=== PATIENT | female | born 1975 | race Caucasian/White ===

== ENCOUNTER → 2022-11-06 09:24 | Outpatient (CLI) | payer MEDICAID, SELFPAY | PROVIDERS: PCP Family Medicine; Visit Provider Allergy & Immunology | DX: R05.3 Chronic cough (principal) | CPT/HCPCS: 94060; 94726; 94729 ==

== ENCOUNTER → 2022-12-26 12:07 | Outpatient (CLI) | payer MEDICAID, SELFPAY ==
[2022-12-26 13:06] LABS: Erythrocyte Sedimentation Rate 115 mm/hr (0-20)
[2022-12-26 13:40] LABS: Uric Acid 5.1 mg/dl (2.5-6.2)
[2022-12-26 13:45] LABS: C-Reactive Protein 23.4 mg/L (0-4)
[2022-12-27 15:21] LABS: Anti-Cyclic Citrullinated Pept 0 units (0-19)
[2022-12-30 13:08] LABS: Anti-DNA (DS) Ab Qn 1 IU/mL (0-9); Sjogren's Anti-SS-A <0.2 AI (0.0-0.9); Sjogren's Anti-SS-B <0.2 AI (0.0-0.9)
[2022-12-30 21:34] LABS: Antinuclear Antibodies, IFA Negative (.)
[2022-12-31 09:16] LABS: Anti-DNA (DS) Ab Qn 1
[2022-12-31 09:17] LABS: Anti-DNA (DS) Ab Charge YES; Antinuclear Antibodies (ANA) Negative; Sjogren's Anti-SS-A <0.2; Sjogren's Anti-SS-A Ab Charge YES; Sjogren's Anti-SS-B <0.2; Sjogren's Anti-SS-B Ab Charge YES
== END ==
PROVIDERS: PCP Family Medicine; Visit Provider Internal Medicine Pulmonary Disease
DX: J84.9 Interstitial pulmonary disease, unspecified (principal); R06.09 Other forms of dyspnea
CPT/HCPCS: 36415; 84550; 85651; 86038; 86140; 86200; 86225; 86235; 86431

== ENCOUNTER → 2023-03-03 14:55 | Outpatient (CLI) | payer MEDICAID, SELFPAY ==
--- NOTE | 2023-03-03 14:55 | CT_ITS ---
FINAL REPORT CLINICAL HISTORY: High res chest- interstitial pulm disease supine inspiration supine expiration prone inspiration FINDINGS: CT CHEST HIGH RESOLUTION 1.[address] axial slices were performed through the chest at 10 mm intervals utilizing high-resolution protocol. Supine inspiration and expiration and prone inspiration high-resolution CT images were obtained.Coronal reformatted images were submitted. This study was performed with techniques to keep radiation doses as low as reasonably achievable (ALARA). Individualized dose reduction techniques using automated exposure control or adjustment of mA and/or kV according to the patient's size were employed. There is no axillary adenopathy. There is no hilar or mediastinal mass or adenopathy. Heart size is normal. There is no pericardial or pleural effusion. No suspicious infiltrate or nodule is identified on lung window images. High resolution images were obtained in inspiration, expiration, and the prone position. There is no interlobular septal thickening. No pulmonary fibrosis is seen. There is no bronchiectasis. There is no significant air trapping on the expiration images. Limited images of the upper abdomen are unremarkable. IMPRESSION: No evidence of interstitial fibrosis. No evidence of acute intrathoracic abnormality. Reviewed, Interpreted and Dictated by Yola Langley MD Transcribed by Cori Mcarthur Authenticated and . [facility]
== END ==
PROVIDERS: PCP Family Medicine; Visit Provider Internal Medicine Pulmonary Disease
DX: J84.9 Interstitial pulmonary disease, unspecified (principal)
CPT/HCPCS: 71250

== ENCOUNTER → 2023-04-13 09:47 | Outpatient (CLI) | payer MEDICAID, SELFPAY ==
[2023-04-16 18:10] LABS: D001-IgE D pteronyssinus <0.10 kU/L (Class 0); D002-IgE D farinae <0.10 kU/L (Class 0); E001-IgE Cat Dander <0.10 kU/L (Class 0); E005-IgE Dog Dander <0.10 kU/L (Class 0); E072-IgE Mouse Urine <0.10 kU/L (Class 0); G002-IgE Bermuda Grass <0.10 kU/L (Class 0); G006-IgE Timothy Grass <0.10 kU/L (Class 0); I006-IgE Cockroach, German <0.10 kU/L (Class 0); Immunoglobulin E, Total 49 IU/mL (6-495); M001-IgE Penicillium chrysogen <0.10 kU/L (Class 0); M002-IgE Cladosporium herbarum <0.10 kU/L (Class 0); M003-IgE Aspergillus fumigatus <0.10 kU/L (Class 0); M006-IgE Alternaria alternata <0.10 kU/L (Class 0); T001-IgE Maple/Box Elder <0.10 kU/L (Class 0); T003-IgE Common Silver Birch <0.10 kU/L (Class 0); T006-IgE Cedar, Mountain <0.10 kU/L (Class 0); T007-IgE Oak, White <0.10 kU/L (Class 0); T008-IgE Elm, American 0.11 kU/L (Class 0/I); T010-IgE Walnut <0.10 kU/L (Class 0); T011-IgE Maple Leaf Sycamore <0.10 kU/L (Class 0); T014-IgE Cottonwood <0.10 kU/L (Class 0); T015-IgE Ash, White <0.10 kU/L (Class 0); T022-IgE Pecan, Hickory <0.10 kU/L (Class 0); T070-IgE White Mulberry <0.10 kU/L (Class 0); W001-IgE Ragweed, Short <0.10 kU/L (Class 0); W011-IgE Thistle, Russian <0.10 kU/L (Class 0); W014-IgE Pigweed, Common <0.10 kU/L (Class 0); W018-IgE Sheep Sorrel <0.10 kU/L (Class 0)
[2023-04-21 09:16] LABS: Immunoglobulin E, Total 49
== END ==
LOC: LAB 09:48
PROVIDERS: PCP Family Medicine; Visit Provider Allergy & Immunology
DX: R06.2 Wheezing (principal); J30.89 Other allergic rhinitis; R05.3 Chronic cough; R94.2 Abnormal results of pulmonary function studies
CPT/HCPCS: 36415; 82785; 86003

== ENCOUNTER 2024-06-07 14:40 | Outpatient (CLI) | payer OTHER, SELFPAY | END 2024-06-07 23:59 | disposition home or self-care (01) | LOC: LAB.DROPOF 06-08 09:12 | PROVIDERS: PCP Nurse Practitioner; Visit Provider Nurse Practitioner | DX: S91.309A Unspecified open wound, unspecified foot, initial encounter (principal); T81.49XA Infection following a procedure, other surgical site, initial encounter; E08.621 Diabetes mellitus due to underlying condition with foot ulcer; L97.521 Non-pressure chronic ulcer of other part of left foot limited to breakdown of skin | CPT/HCPCS: 87070; 87077; 87186; 87205 ==

== ENCOUNTER 2024-10-20 22:22 | Emergency (ER) | payer OTHER, SELFPAY ==
[2024-10-20 22:31] VITALS: BP 120/62; PULSE 109; RESP 22; TEMP 37.6; O2SAT 98; BMI 39.9
[2024-10-20 22:32] VITALS: BP 120/62; PULSE 103; O2SAT 96
--- OUTSIDE RECORDS SUMMARY | 2024-10-20 22:41 | XMS_ITS | Data Portability ---
Author Organization [facility] [place] [facility] ADMIN Address [address] [place] [id number] Care Team Providers Care Pen Tender Name Role Phone BEBETO LANG Primary Care Provider [phone] Assessment No assessment recorded. Plan of Treatment Reminders Order Date Submit Date Provider Last Modified By Organization Details Last Modified Time Details Appointments 3 MONTH FU 15 2024 08:30A M Bebeto Lang MD Not available Not available Not available Lab thyroid panel, serum 2024 025 UMAIR [facility], [address], [place], [address], 09/21/2024 04:09:17 lipid panel, serum 2024 025 UMAIR [facility], [address], [address], [place], [address], 09/21/2024 04:09:16 HbA1c (hemoglob in A1c), blood 2024 025 UMAIR [facility], [address], [address], [place], [address], 09/21/2024 04:09:18 CMP, serum or plasma 2024 025 UMAIR [facility], [address], [address], [place], [address], 09/21/2024 04:09:15 HbA1c (hemoglob in A1c), blood 2024 025 UMAIR [facility], [address], [address], [place], [address], 06/22/2024 09:14:48 microalbu min/creat inine, mass ratio, urine 2024 025 UMAIR [facility], [address], [address], [place], [address], 06/22/2024 09:14:47 CMP, serum or plasma 2024 025 UMAIR [facility], [address], [address], [place], [address], 06/22/2024 09:14:45 lipid panel, serum 2024 025 GRAPEVINE [facility], [address], [address], [place], [address], 06/22/2024 09:14:46 HbA1c (hemoglob in A1c), blood 2023 024 [facility], [address], [place], [address], 03/18/2024 10:05:27 HbA1c (hemoglob in A1c), blood 2023 024 UMAIR [facility], [address], [address], [place], [address], 12/19/2023 03:36:56 CMP, serum or plasma 2023 024 UMAIR [facility], [address], [address], [place], [address], 12/19/2023 03:36:55 lipid panel, serum 2023 024 UMAIR [facility], [address], [address], [place], [address], 12/19/2023 03:36:56 CMP, serum or plasma 2023 024 UMAIR [facility], [address], [address], [place], [address], 09/05/2023 09:38:17 lipid panel, serum 2023 024 UMAIR [facility], [address], [place], [address], 09/05/2023 09:38:18 HbA1c (hemoglob in A1c), blood 2023 024 UMAIR [facility], [address], [place], [address], 09/05/2023 09:38:20 thyroid panel, serum 2023 024 UMAIR [facility], [address], [place], [address], 09/05/2023 09:38:19 CBC w/ auto diff 2023 024 UMAIR [facility], [address], [place], [address], 09/05/2023 09:38:16 Referral None recorded. Procedures None recorded. Surgeries None recorded. Imaging None recorded. Medication Orders azelastin e 137 mcg-fluti casone 50 mcg/spray nasal spray 2024 025 UMAIR [employer] [employer] [address] [place], [address], 09/20/2024 09:24:02 metformin 850 mg tablet 2024 025 [facility] [address] [facility] [address], [place], [address], 09/20/2024 09:24:05 ibuprofen 800 mg tablet 2024 [facility] [address] [facility], [place], [address], 09/20/2024 09:24:08 diclofena c 1 % topical gel 2024 [facility] [address] [facility] [address], [place], [address], 09/20/2024 09:24:05 carvedilo l 12.5 mg tablet 2024 [facility], [facility]., [address] [facility] [address], [place], [address], 09/20/2024 09:24:01 azelastin e 137 mcg-fluti casone 50 mcg/spray nasal spray 2024 [facility] [address] [facility] [address], [place], [address], 06/21/2024 09:11:23 levocetir izine 5 mg tablet 2024 025 [facility] [address] [facility] [address], [place], [address], 06/21/2024 09:11:23 simvastat in 20 mg tablet 2024 025 [facility] [address] [facility] [address], [place], [address], 06/21/2024 09:11:22 carvedilo l 6.25 mg tablet 2024 025 [facility] [address] [facility] [address], [place], [address], 06/21/2024 09:35:56 Voltaren Arthritis Pain 1 % topical gel 2023 025 [facility] [id number], [address] [place] [address], [address], 06/21/2024 09:04:11 Januvia 100 mg tablet 2023 024 [facility], [facility]., [address] [place] [address] C, [place], [address], 03/18/2024 09:23:41 Coreg 3.125 mg tablet 2023 024 [facility], [facility]., [address] [place] [address], [place], [address], 09/20/2024 09:14:51 glimepiri de 4 mg tablet 2023 024 [facility], [facility]., [address] [place] [address], [place], [address], 12/18/2023 08:42:53 Januvia 100 mg tablet 2023 024 [facility] [address] [place] [address], [place], [address], 12/18/2023 08:42:49 Lantus Solostar U-100 Insulin 100 unit/mL (3 mL) subcutane ous pen 2023 024 [facility] [address] [place] [address] C, [place], [address], 12/18/2023 08:42:52 metformin 850 mg tablet 2023 024 [facility] [address] [place] [address] C, [place], [address], 12/18/2023 08:42:50 carvedilo l 12.5 mg tablet 2023 024 [email or web address] [facility] [employer] [employer] [address] [facility] [address], [place], [address], 06/21/2024 09:04:00 losartan 100 mg-hydroc hlorothia zide 25 mg tablet 2023 024 [facility] [address] [facility] [place], [address], 12/18/2023 08:42:52 ibuprofen 800 mg tablet 2023 024 [facility], [employer] [address] [facility] [address], [place], [address], 06/21/2024 09:04:17 losartan 100 mg-hydroc hlorothia zide 25 mg tablet 2023 024 [facility] [id number], [address] [place] [address], [address], 09/04/2023 09:50:26 Patient TargetsNo targets recorded. Patient InstructionsNo instructions recorded. Reason for Referral None Reported. Results Created Date Observation Date Name Description Value Unit Range Abnormal Flag Note LastModifiedBy Organization Detail LastModifiedTime 09/04/1909/05/2023 CBC WITH DIFFE RENTI AL/PL ATELE T WBC 11.4 x10e3 /uL 3.4-10 .8 above high normal Not Available [facility] ([facility]) [address] [place], [address], 09/05/2023 09:38:16 09/04/19 24 09/05/2023 CBC WITH DIFFE RENTI AL/PL ATELE T RBC 3.92 x10e6 /uL 3.77-5 .28 Not Available [facility] ([facility]) [address] [facility], [place], [address], 09/05/2023 09:38:16 09/04/19 24 09/05/2023 CBC WITH DIFFE RENTI AL/PL ATELE T hemoglobin 12.0 g/dL 11.1-1 5.9 Not Available [facility] ([facility]) [address] [facility], [place], [address], 09/05/2023 09:38:16 09/04/19 24 09/05/2023 CBC WITH DIFFE RENTI AL/PL ATELE T hematocrit 36.1 % 34.0-4 6.6 Not Available [facility] ([facility]) [address] [facility], [place], [address], 09/05/2023 09:38:16 09/04/19 24 09/05/2023 CBC WITH DIFFE RENTI AL/PL ATELE T MCV 92 fL 79-97 Not Available [facility] ([facility]) [address] [facility], [place], [address], 09/05/2023 09:38:16 09/04/19 24 09/05/2023 CBC WITH DIFFE RENTI AL/PL ATELE T MCH 30.6 pg 26.6-3 3.0 Not Available [facility] ([facility]) [address] [place], [address], 09/05/2023 09:38:16 09/04/19 24 09/05/2023 CBC WITH DIFFE RENTI AL/PL ATELE T MCHC 33.2 g/dL 31.5-3 5.7 Not Available [facility] ([facility]) [address] [place], [address], 09/05/2023 09:38:16 09/04/19 24 09/05/2023 CBC WITH DIFFE RENTI AL/PL ATELE T RDW 12.8 % 11.7-1 5.4 Not Available [facility] ([facility]) [address] [place], [address], 09/05/2023 09:38:16 09/04/19 24 09/05/2023 CBC WITH DIFFE RENTI AL/PL ATELE T platelets 261 x10e3 /uL 150-45 0 Not Available [facility] ([facility]) [address] [facility], [place], [address], 09/05/2023 09:38:16 09/04/19 24 09/05/2023 CBC WITH DIFFE RENTI AL/PL ATELE T neutrophils 67 % not estab. Not Available [facility] ([facility]) [address] [facility], [place], [address], 09/05/2023 09:38:16 09/04/19 24 09/05/2023 CBC WITH DIFFE RENTI AL/PL ATELE T lymphs 26 % not estab. Not Available [facility] ([facility]) [address] [facility], [place], [address], 09/05/2023 09:38:16 09/04/19 24 09/05/2023 CBC WITH DIFFE RENTI AL/PL ATELE T monocytes 5 % not estab. Not Available [facility] ([facility]) [address] [facility], [place], [address], 09/05/2023 09:38:16 09/04/19 24 09/05/2023 CBC WITH DIFFE RENTI AL/PL ATELE T eos 2 % not estab. Not Available [facility] ([facility]) [address] [facility], [place], [address], 09/05/2023 09:38:16 09/04/19 24 09/05/2023 CBC WITH DIFFE RENTI AL/PL ATELE T basos 0 % not estab. Not Available [facility] ([facility]) [address] [facility], [place], [address], 09/05/2023 09:38:16 09/04/19 24 09/05/2023 CBC WITH DIFFE RENTI AL/PL ATELE T immature cells BLANKET CUTTER HAND Not Available [facility] ([facility]) [address] [facility], [place], [address], 09/05/2023 09:38:16 09/04/19 24 09/05/2023 CBC WITH DIFFE RENTI AL/PL ATELE T neutrophils (absolute) 7.6 x10e3 /uL 1.4-7. 0 above high normal Not Available [facility] ([facility]) [address] [place], [address], 09/05/2023 09:38:16 09/04/19 24 09/05/2023 CBC WITH DIFFE RENTI AL/PL ATELE T lymphs (absolute) 2.9 x10e3 /uL 0.7-3. 1 Not Available [facility] ([facility]) [address] [place], [address], 09/05/2023 09:38:16 09/04/19 24 09/05/2023 CBC WITH DIFFE RENTI AL/PL ATELE T monocytes(ab solute) 0.6 x10e3 /uL 0.1-0. 9 Not Available [facility] ([facility]) [address] [place], [address], 09/05/2023 09:38:16 09/04/19 24 09/05/2023 CBC WITH DIFFE RENTI AL/PL ATELE T eos (absolute) 0.3 x10e3 /uL 0.0-0. 4 Not Available [facility] ([facility]) [address] [place], [address], 09/05/2023 09:38:16 09/04/19 24 09/05/2023 CBC WITH DIFFE RENTI AL/PL ATELE T baso (absolute) 0.1 x10e3 /uL 0.0-0. 2 Not Available [facility] ([facility]) [address] [place], [address], 09/05/2023 09:38:16 09/04/19 24 09/05/2023 CBC WITH DIFFE RENTI AL/PL ATELE T immature granulocytes 0 % not estab. Not Available [facility] ([facility]) [address] [facility], [place], [address], 09/05/2023 09:38:16 09/04/19 24 09/05/2023 CBC WITH DIFFE RENTI AL/PL ATELE T immature grans (abs) 0.0 x10e3 /uL 0.0-0. 1 Not Available [facility] ([facility]) [address] [facility], [place], [address], 09/05/2023 09:38:16 09/04/19 24 09/05/2023 CBC WITH DIFFE RENTI AL/PL ATELE T NRBC BLANKET CUTTER HAND Not Available [facility] ([facility]) [address] [facility], [place], [address], 09/05/2023 09:38:16 09/04/19 24 09/05/2023 CBC WITH DIFFE RENTI AL/PL ATELE T hematology comments: BLANKET CUTTER HAND Not Available [facility] ([facility]) [address] [facility], [place], [address], 09/05/2023 09:38:16 09/04/19 24 09/05/2023 COMP. METAB OLIC PANEL (14) glucose 136 mg/dL 70-99 above high normal Not Available [facility] ([facility]) [address] [facility] [place], [address], 09/05/2023 09:38:17 09/04/19 24 09/05/2023 COMP. METAB OLIC PANEL (14) BUN 28 mg/dL 6-24 above high normal Not Available [facility] ([facility]) [address] [facility] [place], [address], 09/05/2023 09:38:17 09/04/19 24 09/05/2023 COMP. METAB OLIC PANEL (14) creatinine 1.19 mg/dL 0.57-1 .00 above high normal Not Available [facility] ([facility]) [address] [facility], [place], [address], 09/05/2023 09:38:17 09/04/19 24 09/05/2023 COMP. METAB OLIC PANEL (14) eGFR 57 mL/mi n/1.7 3 >59 below low normal Not Available [facility] ([facility]) [address], [place], [address], 09/05/2023 09:38:17 09/04/19 24 09/05/2023 COMP. METAB OLIC PANEL (14) BUN/creatini ne ratio 24 9-23 above high normal Not Available [facility] ([facility]) [address] [place], [address], 09/05/2023 09:38:17 09/04/19 24 09/05/2023 COMP. METAB OLIC PANEL (14) sodium 139 mmol/ L 134-14 4 Not Available [facility] ([facility]) [address] [place], [address], 09/05/2023 09:38:17 09/04/19 24 09/05/2023 COMP. METAB OLIC PANEL (14) potassium 5.3 mmol/ L 3.5-5. 2 above high normal Not Available [facility] ([facility]) [address] [place], [address], 09/05/2023 09:38:17 09/04/19 24 09/05/2023 COMP. METAB OLIC PANEL (14) chloride 100 mmol/ L 96-106 Not Available [facility] ([facility]) [address] [place], [address], 09/05/2023 09:38:17 09/04/19 24 09/05/2023 COMP. METAB OLIC PANEL (14) carbon dioxide, total 24 mmol/ L 20-29 Not Available [facility] ([facility]) [address] [place], [address], 09/05/2023 09:38:17 09/04/19 24 09/05/2023 COMP. METAB OLIC PANEL (14) calcium 9.7 mg/dL 8.7-10 .2 Not Available [facility] ([facility]) [address] [place], [address], 09/05/2023 09:38:17 09/04/19 24 09/05/2023 COMP. METAB OLIC PANEL (14) protein, total 7.1 g/dL 6.0-8. 5 Not Available [facility] ([facility]) [address], [place], [address], 09/05/2023 09:38:17 09/04/19 24 09/05/2023 COMP. METAB OLIC PANEL (14) albumin 4.2 g/dL 3.9-4. 9 Not Available [facility] ([facility]) [address] [place], [address], 09/05/2023 09:38:17 09/04/19 24 09/05/2023 COMP. METAB OLIC PANEL (14) globulin, total 2.9 g/dL 1.5-4. 5 Not Available [facility] ([facility]) [address] [place], [address], 09/05/2023 09:38:17 09/04/19 24 09/05/2023 COMP. METAB OLIC PANEL (14) A/G ratio 1.4 1.2-2. 2 Not Available [facility] ([facility]) [address] [place], [address], 09/05/2023 09:38:17 09/04/19 24 09/05/2023 COMP. METAB OLIC PANEL (14) bilirubin, total <0.2 mg/dL 0.0-1. 2 Not Available [facility] ([facility]) [address], [place], [address], 09/05/2023 09:38:17 09/04/19 24 09/05/2023 COMP. METAB OLIC PANEL (14) alkaline phosphatase 101 IU/L 44-121 Not Available [facility] ([facility]) [address] [place], [address], 09/05/2023 09:38:17 09/04/19 24 09/05/2023 COMP. METAB OLIC PANEL (14) AST (SGOT) 13 IU/L 0-40 Not Available [facility] ([facility]) [address] [place], [address], 09/05/2023 09:38:17 09/04/19 24 09/05/2023 COMP. METAB OLIC PANEL (14) ALT (SGPT) 14 IU/L 0-32 Not Available [facility] ([facility]) [address] [place], [address], 09/05/2023 09:38:17 09/04/19 24 09/05/2023 LIPID PANEL cholesterol, total 211 mg/dL 100-19 9 above high normal Not Available [facility] ([facility]) [address] [place], [address], 09/05/2023 09:38:18 09/04/19 24 09/05/2023 LIPID PANEL triglyceride s 210 mg/dL 0-149 above high normal Not Available [facility] ([facility]) [address] [place], [address], 09/05/2023 09:38:18 09/04/19 24 09/05/2023 LIPID PANEL HDL cholesterol 50 mg/dL >39 Not Available [facility] ([facility]) [address] [place], [address], 09/05/2023 09:38:18 09/04/19 24 09/05/2023 LIPID PANEL VLDL cholesterol bola 37 mg/dL 5-40 Not Available [facility] ([facility]) [address] [place], [address], 09/05/2023 09:38:18 09/04/19 24 09/05/2023 LIPID PANEL LDL chol calc ([facility]) 124 mg/dL 0-99 above high normal Not Available [facility] ([facility]) [address] [place], [address], 09/05/2023 09:38:18 09/04/19 24 09/05/2023 LIPID PANEL 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 Not Available [facility] ([facility]) [address] [place], [address], 09/05/2023 09:38:18 09/04/19 24 09/05/2023 THYRO ID PANEL WITH TSH TSH 5.070 uIU/m L 0.450- 4.500 above high normal Not Available [facility] ([facility]) [address] [place], [address], 09/05/2023 09:38:19 09/04/19 24 09/05/2023 THYRO ID PANEL WITH TSH thyroxine (T4) 10.1 ug/dL 4.5-12 .0 Not Available [facility] ([facility]) [address] [place], [address], 09/05/2023 09:38:19 09/04/19 24 09/05/2023 THYRO ID PANEL WITH TSH T3 uptake 24 % 24-39 Not Available [facility] ([facility]) [address] [place], [address], 09/05/2023 09:38:19 09/04/19 24 09/05/2023 THYRO ID PANEL WITH TSH free thyroxine index 2.4 1.2-4. 9 Not Available [facility] ([facility]) [address] [place], [address], 09/05/2023 09:38:19 09/04/19 24 09/05/2023 HEMOG LOBIN A1C hemoglobin A1C 8.4 % 4.8-5. 6 above high normal Predi abete s: 5.7 - 6.4 Diabe orville: >6.4 Glyce sonal contr ol for adult s with diabe orville: <7.0 Not Available [facility] ([facility]) [address] [place], [address], 09/05/2023 09:38:20 12/18/19 24 12/19/2023 COMP. METAB OLIC PANEL (14) glucose 174 mg/dL 70-99 above high normal Not Available [facility] ([facility]) [address] [place], [address], 12/19/2023 03:36:55 12/18/19 24 12/19/2023 COMP. METAB OLIC PANEL (14) BUN 34 mg/dL 6-24 above high normal Not Available [facility] ([facility]) [address] [place], [address], 12/19/2023 03:36:55 12/18/19 24 12/19/2023 COMP. METAB OLIC PANEL (14) creatinine 1.11 mg/dL 0.57-1 .00 above high normal Not Available [facility] ([facility]) [address] [place], [address], 12/19/2023 03:36:55 12/18/19 24 12/19/2023 COMP. METAB OLIC PANEL (14) eGFR 62 mL/mi n/1.7 3 >59 normal Not Available [facility] ([facility]) [address] [place], [address], 12/19/2023 03:36:55 12/18/19 24 12/19/2023 COMP. METAB OLIC PANEL (14) BUN/creatini ne ratio 31 9-23 above high normal Not Available [facility] ([facility]) [address] [place], [address], 12/19/2023 03:36:55 12/18/19 24 12/19/2023 COMP. METAB OLIC PANEL (14) sodium 140 mmol/ L 134-14 4 normal Not Available [facility] ([facility]) [address] [facility] [place], [address], 12/19/2023 03:36:55 12/18/19 24 12/19/2023 COMP. METAB OLIC PANEL (14) potassium 4.5 mmol/ L 3.5-5. 2 normal Not Available [facility] ([facility]) [address] [facility] [place], [address], 12/19/2023 03:36:55 12/18/19 24 12/19/2023 COMP. METAB OLIC PANEL (14) chloride 102 mmol/ L 96-106 normal Not Available [facility] ([facility]) [address] [facility] [place], [address], 12/19/2023 03:36:55 12/18/1912/19/2023 COMP. METAB OLIC PANEL (14) carbon dioxide, total 22 mmol/ L 20-29 normal Not Available [facility] ([facility]) [address] [facility] [place], [address], 12/19/2023 03:36:55 12/18/19 24 12/19/2023 COMP. METAB OLIC PANEL (14) calcium 8.9 mg/dL 8.7-10 .2 normal Not Available [facility] ([facility]) [address] [facility] [place], [address], 12/19/2023 03:36:55 12/18/1912/19/2023 COMP. METAB OLIC PANEL (14) protein, total 6.9 g/dL 6.0-8. 5 normal Not Available [facility] ([facility]) [address] [facility] [place], [address], 12/19/2023 03:36:55 12/18/19 24 12/19/2023 COMP. METAB OLIC PANEL (14) albumin 4.1 g/dL 3.9-4. 9 normal Not Available [facility] ([facility]) [address] [place], [address], 12/19/2023 03:36:55 12/18/19 24 12/19/2023 COMP. METAB OLIC PANEL (14) globulin, total 2.8 g/dL 1.5-4. 5 Not Available [facility] ([facility]) [address] [place], [address], 12/19/2023 03:36:55 12/18/19 24 12/19/2023 COMP. METAB OLIC PANEL (14) bilirubin, total <0.2 mg/dL 0.0-1. 2 Not Available [facility] ([facility]) [address] [place], [address], 12/19/2023 03:36:55 12/18/19 24 12/19/2023 COMP. METAB OLIC PANEL (14) alkaline phosphatase 83 IU/L 44-121 normal Not Available [facility] ([facility]) [address] [place], [address], 12/19/2023 03:36:55 12/18/1912/19/2023 COMP. METAB OLIC PANEL (14) AST (SGOT) 11 IU/L 0-40 normal Not Available [facility] ([facility]) [address] [place], [address], 12/19/2023 03:36:55 12/18/19 24 12/19/2023 COMP. METAB OLIC PANEL (14) ALT (SGPT) 15 IU/L 0-32 normal Not Available [facility] ([facility]) [address] [place], [address], 12/19/2023 03:36:55 12/18/19 24 12/19/2023 LIPID PANEL cholesterol, total 196 mg/dL 100-19 9 normal Not Available [facility] ([facility]) [address] [facility] [place], [address], 12/19/2023 03:36:56 12/18/1912/19/2023 LIPID PANEL triglyceride s 350 mg/dL 0-149 above high normal Not Available [facility] ([facility]) [address] [place], [address], 12/19/2023 03:36:56 12/18/1912/19/2023 LIPID PANEL HDL cholesterol 38 mg/dL >39 below low normal Not Available [facility] ([facility]) [address] [place], [address], 12/19/2023 03:36:56 12/18/1912/19/2023 LIPID PANEL VLDL cholesterol bola 59 mg/dL 5-40 above high normal Not Available [facility] ([facility]) [address] [place], [address], 12/19/2023 03:36:56 12/18/1912/19/2023 LIPID PANEL LDL chol calc ([facility]) 99 mg/dL 0-99 Not Available [facility] ([facility]) [address] [place], [address], 12/19/2023 03:36:56 12/18/1912/19/2023 LIPID PANEL LDL calc 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 Not Available [facility] ([facility]) [address] [place], [address], 12/19/2023 03:36:56 12/18/1912/19/2023 HEMOG LOBIN A1C hemoglobin A1C 8.0 % 4.8-5. 6 above high normal Predi abete s: 5.7 - 6.4 Diabe orville: >6.4 Glyce sonal contr ol for adult s with diabe orville: <7.0 Not Available [facility] ([facility]) [address] [place], [address], 12/19/2023 03:36:56 03/18/2003/18/2024 HbA1c (hemo globi n A1c), blood HbA1c 6.9 Not Available [facility] [address], [place], [address], 03/18/2024 09:22:01 06/21/19 25 06/22/2024 COMP. METAB OLIC PANEL (14) glucose 139 mg/dL 70-99 above high normal Not Available [facility] ([facility]) [address] [place], [address], 06/22/2024 09:14:45 06/21/19 25 06/22/2024 COMP. METAB OLIC PANEL (14) BUN 33 mg/dL 6-24 above high normal Not Available [facility] ([facility]) [address] [place], [address], 06/22/2024 09:14:45 06/21/19 25 06/22/2024 COMP. METAB OLIC PANEL (14) creatinine 1.12 mg/dL 0.57-1 .00 above high normal Not Available [facility] ([facility]) [address] [place], [address], 06/22/2024 09:14:45 06/21/19 25 06/22/2024 COMP. METAB OLIC PANEL (14) eGFR 61 mL/mi n/1.7 3 >59 normal Not Available [facility] ([facility]) [address] [place], [address], 06/22/2024 09:14:45 06/21/19 25 06/22/2024 COMP. METAB OLIC PANEL (14) BUN/creatini ne ratio 29 9-23 above high normal Not Available [facility] ([facility]) [address] [place], [address], 06/22/2024 09:14:45 06/21/19 25 06/22/2024 COMP. METAB OLIC PANEL (14) sodium 141 mmol/ L 134-14 4 normal Not Available [facility] ([facility]) [address] [place], [address], 06/22/2024 09:14:45 06/21/19 25 06/22/2024 COMP. METAB OLIC PANEL (14) potassium 5.0 mmol/ L 3.5-5. 2 normal Not Available [facility] ([facility]) [address] [place], [address], 06/22/2024 09:14:45 06/21/19 25 06/22/2024 COMP. METAB OLIC PANEL (14) chloride 102 mmol/ L 96-106 normal Not Available [facility] ([facility]) [address] [place], [address], 06/22/2024 09:14:45 06/21/19 25 06/22/2024 COMP. METAB OLIC PANEL (14) carbon dioxide, total 23 mmol/ L 20-29 normal Not Available [facility] ([facility]) [address] [facility] [place], [address], 06/22/2024 09:14:45 06/21/19 25 06/22/2024 COMP. METAB OLIC PANEL (14) calcium 10.1 mg/dL 8.7-10 .2 normal Not Available [facility] ([facility]) [address] [facility] [place], [address], 06/22/2024 09:14:45 06/21/19 25 06/22/2024 COMP. METAB OLIC PANEL (14) protein, total 7.3 g/dL 6.0-8. 5 normal Not Available [facility] ([facility]) [address] [facility] [place], [address], 06/22/2024 09:14:45 06/21/19 25 06/22/2024 COMP. METAB OLIC PANEL (14) albumin 4.2 g/dL 3.9-4. 9 normal Not Available [facility] ([facility]) [address] [facility] [place], [address], 06/22/2024 09:14:45 06/21/19 25 06/22/2024 COMP. METAB OLIC PANEL (14) globulin, total 3.1 g/dL 1.5-4. 5 Not Available [facility] ([facility]) [address] [facility] [place], [address], 06/22/2024 09:14:45 06/21/19 25 06/22/2024 COMP. METAB OLIC PANEL (14) bilirubin, total <0.2 mg/dL 0.0-1. 2 Not Available [facility] ([facility]) [address] [facility] [place], [address], 06/22/2024 09:14:45 06/21/19 25 06/22/2024 COMP. METAB OLIC PANEL (14) alkaline phosphatase 84 IU/L 44-121 normal Not Available [facility] ([facility]) [address] [facility] [place], [address], 06/22/2024 09:14:45 06/21/19 25 06/22/2024 COMP. METAB OLIC PANEL (14) AST (SGOT) 10 IU/L 0-40 normal Not Available [facility] ([facility]) [address] [place], [address], 06/22/2024 09:14:45 06/21/19 25 06/22/2024 COMP. METAB OLIC PANEL (14) ALT (SGPT) 13 IU/L 0-32 normal Not Available [facility] ([facility]) [address] [facility] [place], [address], 06/22/2024 09:14:45 06/21/19 25 06/22/2024 LIPID PANEL cholesterol, total 171 mg/dL 100-19 9 normal Not Available [facility] ([facility]) [address] [place], [address], 06/22/2024 09:14:46 06/21/19 25 06/22/2024 LIPID PANEL triglyceride s 236 mg/dL 0-149 above high normal Not Available [facility] ([facility]) [address] [place], [address], 06/22/2024 09:14:46 06/21/19 25 06/22/2024 LIPID PANEL HDL cholesterol 41 mg/dL >39 normal Not Available [facility] ([facility]) [address] [place], [address], 06/22/2024 09:14:46 06/21/19 25 06/22/2024 LIPID PANEL VLDL cholesterol bola 40 mg/dL 5-40 Not Available [facility] ([facility]) [address] [place], [address], 06/22/2024 09:14:46 06/21/1906/22/2024 LIPID PANEL LDL chol calc ([facility]) 90 mg/dL 0-99 Not Available [facility] ([facility]) [address] [place], [address], 06/22/2024 09:14:46 06/21/1906/22/2024 LIPID PANEL 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 normal Not Available [facility] ([facility]) [address] [place], [address], 06/22/2024 09:14:47 06/21/19 25 06/22/2024 ALBUM IN/CR EAT RATIO , RANDO M UR albumin, urine 24.9 ug/mL not estab. Not Available [facility] ([facility]) [address] [place], [address], 06/22/2024 09:14:47 06/21/1906/22/2024 ALBUM IN/CR EAT RATIO , TYLER Ford UR alb/creat ratio 60 mg/g_ creat 0-29 above high normal Florina l: 0 - 29 Moder ately incre ased: 30 - 300 Sever tammi incre ased: >300 Not Available [facility] ([facility]) [address] [place], [address], 06/22/2024 09:14:47 06/21/1906/22/2024 HEMOG LOBIN A1C hemoglobin A1C 8.0 % 4.8-5. 6 above high normal Predi abete s: 5.7 - 6.4 Diabe orville: >6.4 Glyce sonal contr ol for adult s with diabe orville: <7.0 Not Available [facility] ([facility]) [address] [place], [address], 06/22/2024 09:14:48 09/21/1909/21/2024 COMP. METAB OLIC PANEL (14) glucose 192 mg/dL 70-99 above high normal Not Available [facility] ([facility]) [address] [place], [address], 09/21/2024 04:09:15 09/21/19 25 09/21/2024 COMP. METAB OLIC PANEL (14) BUN 35 mg/dL 6-24 above high normal Not Available [facility] ([facility]) [address] [place], [address], 09/21/2024 04:09:15 09/21/19 25 09/21/2024 COMP. METAB OLIC PANEL (14) creatinine 1.22 mg/dL 0.57-1 .00 above high normal Not Available [facility] ([facility]) [address] [place], [address], 09/21/2024 04:09:15 09/21/19 25 09/21/2024 COMP. METAB OLIC PANEL (14) eGFR 55 mL/mi n/1.7 3 >59 below low normal Not Available [facility] ([facility]) [address] [place], [address], 09/21/2024 04:09:15 09/21/19 25 09/21/2024 COMP. METAB OLIC PANEL (14) BUN/creatini ne ratio 29 9-23 above high normal Not Available [facility] ([facility]) [address] [place], [address], 09/21/2024 04:09:15 09/21/19 25 09/21/2024 COMP. METAB OLIC PANEL (14) sodium 139 mmol/ L 134-14 4 normal Not Available [facility] ([facility]) [address] [place], [address], 09/21/2024 04:09:15 09/21/19 25 09/21/2024 COMP. METAB OLIC PANEL (14) potassium 4.5 mmol/ L 3.5-5. 2 normal Not Available [facility] ([facility]) [address] [place], [address], 09/21/2024 04:09:15 09/21/19 25 09/21/2024 COMP. METAB OLIC PANEL (14) chloride 103 mmol/ L 96-106 normal Not Available [facility] ([facility]) [address] [place], [address], 09/21/2024 04:09:15 09/21/19 25 09/21/2024 COMP. METAB OLIC PANEL (14) carbon dioxide, total 19 mmol/ L 20-29 below low normal Not Available [facility] ([facility]) [address] [place], [address], 09/21/2024 04:09:15 09/21/19 25 09/21/2024 COMP. METAB OLIC PANEL (14) calcium 10.0 mg/dL 8.7-10 .2 normal Not Available [facility] ([facility]) [address] [facility] [place], [address], 09/21/2024 04:09:15 09/21/19 25 09/21/2024 COMP. METAB OLIC PANEL (14) protein, total 7.5 g/dL 6.0-8. 5 normal Not Available [facility] ([facility]) [address] [facility] [place], [address], 09/21/2024 04:09:15 09/21/19 25 09/21/2024 COMP. METAB OLIC PANEL (14) albumin 4.5 g/dL 3.9-4. 9 normal Not Available [facility] ([facility]) [address] [facility] [place], [address], 09/21/2024 04:09:15 09/21/19 25 09/21/2024 COMP. METAB OLIC PANEL (14) globulin, total 3.0 g/dL 1.5-4. 5 Not Available [facility] ([facility]) [address] [facility] [place], [address], 09/21/2024 04:09:15 09/21/19 25 09/21/2024 COMP. METAB OLIC PANEL (14) bilirubin, total <0.2 mg/dL 0.0-1. 2 Not Available [facility] ([facility]) [address] [facility] [place], [address], 09/21/2024 04:09:15 09/21/19 25 09/21/2024 COMP. METAB OLIC PANEL (14) alkaline phosphatase 99 IU/L 44-121 normal Not Available [facility] ([facility]) [address] [facility] [place], [address], 09/21/2024 04:09:15 09/21/19 25 09/21/2024 COMP. METAB OLIC PANEL (14) AST (SGOT) 11 IU/L 0-40 normal Not Available [facility] ([facility]) [address] [facility] [place], [address], 09/21/2024 04:09:15 09/21/19 25 09/21/2024 COMP. METAB OLIC PANEL (14) ALT (SGPT) 12 IU/L 0-32 normal Not Available [facility] ([facility]) [address] [facility] [place], [address], 09/21/2024 04:09:15 09/21/19 25 09/21/2024 LIPID PANEL cholesterol, total 238 mg/dL 100-19 9 above high normal Not Available [facility] ([facility]) [address] [facility] [place], [address], 09/21/2024 04:09:16 09/21/19 25 09/21/2024 LIPID PANEL triglyceride s 281 mg/dL 0-149 above high normal Not Available [facility] ([facility]) [address] [facility] [place], [address], 09/21/2024 04:09:16 09/21/19 25 09/21/2024 LIPID PANEL HDL cholesterol 43 mg/dL >39 normal Not Available [facility] ([facility]) [address] [facility] [place], [address], 09/21/2024 04:09:16 09/21/19 25 09/21/2024 LIPID PANEL VLDL cholesterol bola 51 mg/dL 5-40 above high normal Not Available [facility] ([facility]) [address] [facility] [place], [address], 09/21/2024 04:09:16 09/21/19 25 09/21/2024 LIPID PANEL LDL chol calc ([facility]) 144 mg/dL 0-99 above high normal Not Available [facility] ([facility]) [address] [facility] [place], [address], 09/21/2024 04:09:16 09/21/1909/21/2024 LIPID PANEL LDL calc 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 Not Available [facility] ([facility]) [address] [place], [address], 09/21/2024 04:09:16 09/21/1909/21/2024 THYRO ID PANEL WITH TSH TSH 6.410 uIU/m L 0.450- 4.500 above high normal Not Available [facility] ([facility]) [address] [place], [address], 09/21/2024 04:09:17 09/21/1909/21/2024 THYRO ID PANEL WITH TSH thyroxine (T4) 10.0 ug/dL 4.5-12 .0 normal Not Available [facility] ([facility]) [address] [place], [address], 09/21/2024 04:09:17 09/21/1909/21/2024 THYRO ID PANEL WITH TSH T3 uptake 22 % 24-39 below low normal Not Available [facility] ([facility]) [address] [place], [address], 09/21/2024 04:09:17 09/21/1909/21/2024 THYRO ID PANEL WITH TSH free thyroxine index 2.2 1.2-4. 9 normal Not Available [facility] ([facility]) [address] [place], [address], 09/21/2024 04:09:17 09/21/1909/21/2024 HEMOG LOBIN A1C hemoglobin A1C 7.9 % 4.8-5. 6 above high normal Predi abete s: 5.7 - 6.4 Diabe orville: >6.4 Glyce sonal contr ol for adult s with diabe orville: <7.0 Not Available [facility] ([facility]) [address] [place], [address], 09/21/2024 04:09:18 Result Notes None recorded. Procedures Surgical History Date Name Laterality Status Provider Name and Address Organization Details Recorded Time 1 completed Tamie LIMON - [facility] & [place] 07/29/2022 13:22:37 Most Recent Mammogram completed Shanna LIMON - [facility] [place] 12/14/2023 14:23:08 Tubal Ligation completed Jaciel LIMON - [facility] [place] 02/10/2024 17:08:38 section completed Shanna LIMON - [facility] [place] 08/30/2024 14:19:05 Imaging Results None recorded. Procedure Notes None recorded. Medical Equipment None Reported. Allergies No known drug allergies Medications Name Sig Start Date Stop Date Status Note LastModified by Organization Details LastModified Time losartan 50 mg tablet Take 1 tablet every day by oral route. 08/10 completed Not Available Not Available Not Available promethazin e-DM 6.25 mg-15 mg/5 mL oral syrup 06/21 completed Not Available Not Available Not Available carvedilol 6.25 mg tablet TAKE ONE TABLET BY MOUTH TWICE A DAY WITH FOOD active Not Available Not Available No t Available carvedilol 12.5 mg tablet Take 1 tablet twice a day by oral route. 2024 active Not Available Not Available Not Avai lable ibuprofen 800 mg tablet Take 1 tablet twice a day by oral route as needed for 90 days. 2024 active Not Available Not Available Not Avai lable metformin 850 mg tablet TAKE ONE TABLET BY MOUTH THREE TIMES A DAY 2024 active Not Available Not Available Not Avai lable Alphagan P 0.15 % eye drops 09/03 completed Not Available Not Available Not Available carvedilol 3.125 mg tablet Take 1 tablet twice a day by oral route. 09/20 completed Not Available Not Available Not Available levothyroxi ne 25 mcg tablet Take 1 tablet every day by oral route. 2024 active Not Available Not Available Not Avai lable ketorolac 0.5 % eye drops active Not Available Not Available Not Available losartan 100 mg-hydrochl orothiazide 25 mg tablet Take 1 tablet every day by oral route. active Not Available Not Available No t Available prednisolon e acetate 1 % eye drops,suspe nsion active Not Available Not Available Not Available simvastatin 20 mg tablet TAKE ONE TABLET BY MOUTH EVERY EVENING 2024 active Not Available Not Available Not Avai lable oseltamivir 75 mg capsule TAKE 1 CAPSULE BY MOUTH TWICE DAILY FOR 5 DAYS 07/01 completed Not Available Not Available Not Available glimepiride 4 mg tablet TAKE ONE TABLET BY MOUTH DAILY WITH BREAKFAST 2024 active Not Available Not Available Not Avai lable lisinopril 20 mg-hydrochl orothiazide 25 mg tablet TAKE 1 TABLET BY MOUTH DAILY 08/10 completed Not Available Not Available Not Available ammonium lactate 12 % topical cream active Not Available Not Available Not Available mupirocin 2 % topical ointment active Not Available Not Available Not Available azelastine 137 mcg (0.1 %) nasal spray [place] 2 sprays twice a day by intranasa l route. 08/10 completed Not Available Not Available Not Available losartan 100 mg tablet TAKE 1 TABLET BY MOUTH DAILY 12/17 completed Not Available Not Available Not Available fluticasone propionate 50 mcg/actuati on nasal spray,suspe nsion 11/20 completed Not Available Not Available Not Available doxycycline hyclate 100 mg tablet 06/21 completed Not Available Not Available Not Available amoxicillin 875 mg-potassiu m clavulanate 125 mg tablet 11/20 completed Not Available Not Available Not Available Ventolin HFA 90 mcg/actuati on aerosol inhaler active Not Available Not Available Not Available cyclobenzap rine 5 mg tablet 08/10 completed Not Available Not Available Not Available BD Ultra-Fine Short Pen Needle 31 gauge x 09/09 active Not Available Not Available Not Available Januvia 100 mg tablet TAKE ONE TABLET BY MOUTH DAILY active Not Available Not Available No t Available Lantus Solostar U-100 Insulin 100 unit/mL (3 mL) subcutaneou s pen Inject 55 units every day by subcutane ous route for 90 days. 2024 active Not Available Not Available Not Avai lable levocetiriz ine 5 mg tablet Take 1 tablet every day by oral route. 2024 active Not Available Not Available Not Avai lable diclofenac 1 % topical gel APPLY 2 GRAMS TO THE AFFECTED AREA(S) BY TOPICAL ROUTE 4 TIMES PER DAY 2024 active Not Available Not Available Not Avai lable Aerochamber Plus Flow-Vu active Not Available Not Available Not Available azelastine 137 mcg-flutica sone 50 mcg/spray nasal spray [place] 1 spray twice a day by intranasa l route. 2024 active Not Available Not Available Not Avai lable dapaglifloz in propanediol 10 mg tablet TAKE ONE TABLET BY MOUTH EVERY DAY 2024 active Not Available Not Available Not Avai lable insulin glargine-yf gn (U-100) 100 unit/mL (3 mL) subcutaneou s pen 12/17 completed Not Available Not Available Not Available Breyna 160 mcg-4.5 mcg/actuati on HFA aerosol inhaler Inhale 2 puffs twice a day by inhalatio n route. active Not Available Not Available No t Available Vitals Date Recorded Body height Body mass index (BMI) Body weight Body temperature Oxygen saturation Oxygen saturation in Arterial blood by Pulse oximetry Heart rate Systolic blood pressure Diastolic blood pressure Provider Name and Address Organization Details Last Updated DateTime 5 170.18 cm 37.7 kg/m2 642877. 76 g 97.1 [degF] 97 % 97 % 97 /min 160 mm[Hg] 94 mm[Hg] Tamie Shepard [facility] [place] 5 09:04:43 Date Recorded Systolic blood pressure Diastolic blood pressure Provider Name and Address Organization Details Last Updated DateTime 09/04/2023 185 mm[Hg] 95 mm[Hg] Bebeto Lang MD [address] [facility], [place], [address], [facility] [place] 09/04/2023 09:46:18 Date Recorded Body height Body mass index (BMI) Body weight Body temperature Oxygen saturation Oxygen saturation in Arterial blood by Pulse oximetry Heart rate Provider Name and Address Organization Details Last Updated DateTime 4 170.18 cm 37.4 kg/m2 577509. 58 g 97.9 [degF] 98 % 98 % 95 /min Tamie LIMON [facility] & [place] 4 09:37:11 Date Recorded Body height Body mass index (BMI) Body weight Body temperature Oxygen saturation Oxygen saturation in Arterial blood by Pulse oximetry Heart rate Systolic blood pressure Diastolic blood pressure Provider Name and Address Organization Details Last Updated DateTime 4 170.18 cm 37.7 kg/m2 698820. 76 g 97.1 [degF] 98 % 98 % 105 /min 150 mm[Hg] 100 mm[Hg] Tamie LIMON [facility] [place] 4 08:32:03 Date Recorded Body height Body mass index (BMI) Body weight Body temperature Oxygen saturation Oxygen saturation in Arterial blood by Pulse oximetry Heart rate Systolic blood pressure Diastolic blood pressure Provider Name and Address Organization Details Last Updated DateTime 4 170.18 cm 37.7 kg/m2 027235. 76 g 97.1 [degF] 94 % 94 % 88 /min 154 mm[Hg] 100 mm[Hg] Tamie LIMON [facility] [place] 4 09:17:17 Social History Question Answer Notes LastModified by [email or web address] ion Details LastModified Time Tobacco Smoking Status Never Smoker Tamie Shepard [facility], [place] [facility] [place] 07/29/2022 13:22:38 Do You Have An Advance Directive? No [email or web address] Information not available 07/29/2022 Are You Blind Or Do You Have Difficulty Seeing? Yes Information not available 07/29/2022 What Was The Date Of Your Most Recent Tobacco Screening? 12/17/2023 Information not available 02/10/2024 Are You Passively Exposed To Smoke? No [email or web address] Information not available 07/29/2022 How Much Tobacco Do You Smoke? No Information not available 02/10/2024 Sex: Unknown Functional Status Question Answer Note LastModified by [email or web address] ion Details LastModified Time Do you use any illicit or recreational drugs? No [email or web address] Information not available 07/29/2022 What is your level of alcohol consumption? None [email or web address] Information not available 07/29/2022 Do you or have you ever used smokeless tobacco? Never used smokeless tobacco Information not available 02/10/2024 What is your exercise level? Occasional [email or web address] Information not available 07/29/2022 Mental Status Question Answer Note LastModified by Organization D etails LastModified Time Do you feel stressed (tense, restless, nervous, or anxious, or unable to sleep at night)? [id number] [email or web address] Information not available 07/29/2022 Family History Relationship Description Onset Age of this Age Resolved Age Notes LastModified by Organization Details LastModified Time Father Hypertensive disorder [email or web address] Not available 2022 09:13:35 Father Diabetes mellitus [email or web address] Not available 03/18 08:56:08 Father Accidental physical contact killed in a car accide nt [email or web address] Not available 03/18/2024 08:56:08 Father Family member [email or web address] Not available 03/18 08:56:08 Father Disorder of endocrine system pt. added direct ly (12/16) [email or web address] Not available 12/17/2023 17:26:08 Mother Hypertensive disorder [email or web address] Not available 2022 09:13:35 Mother Diabetes mellitus [email or web address] Not available 03/18 08:56:08 Mother Family member [email or web address] Not available 03/18 08:56:08 Mother Disorder of endocrine system pt. added direct ly (12/16) [email or web address] Not available 12/17/2023 17:26:08 Medical History Condition Response Allergies/Hayfever Y Diabetes Y Obesity Y Vision or Eye Problems Y Arthritis Y High Cholesterol Y Back Problems Y Hypertension Y Asthma Y Neurological Problems Y Gynecological History Statement/Question Response Abnormal Pap N 08/29/2020 Flow Moderate Date of LMP 11/30/2023 Sexually Active? Y Menses Monthly Y Duration of Flow (days) 5 Current Control Method Tubal Ligat ion Most Recent Mammogram 06/08/2020 Obstetrics History GPAL:G 0 P 0 0 0 0 Immunizations Vaccine Type Date Status Note Provider Nam e and Address Organization Details Recorded Time Influenza, split virus, quadrivalent, PF 03/01/2020 completed Zainab [place], [place] - [facility] [place] [facility] [place] 11/18/2022 14:17:21 Past Encounters Encounter ID Performer Location Encounter Start Date Encounter Closed Date Diagnosis/Indication Diagnosis SNOMED-CT Code Diagnosis ICD10 Code Diagnosis Note [id number] Bebeto Lang MD [address] [place] [address] 07/29/2022 13:08:25 07/29/2022 13:58:07 Adult health examination 239274019 Z00.00 Type 2 rox betes mellitus without complication 286291587 E11.9 Increase her Lantus to 25 units daily and increased by 5 units every week or so until she is consistent ly below 200 or 60 units per day. Hopefully once we get her under tighter control we can back off on her medication s. She is always been very difficult to control and compliance has been an issue as well. She is aware the long-term affects of untreated diabetes such as coronary disease, stroke, renal failure, neuropathy , blindness. Essential hypertension 91982748 I10 Hypersomnia 49883960 G47 .10 [id number] Bebeto Lang MD [address] [place] [address] 08/26/2022 10:28:50 08/26/2022 17:07:12 [id number] Bebeto Lang MD [address] [place] [address] 11/20/2022 13:23:27 11/20/2022 15:00:51 Type 2 diabetes mellitus 61485869 E11.9 Encouraged to transition to Lantus nightly and we will start backing off these medicines once I get her around 7. Muscle pain 90153982 M79 .10 Essential hypertension 13833629 I10 Advised to take medication as prescribed . [id number] Bebeto Lang MD [address] [place] [address] 02/19/2023 07:59:37 02/19/2023 08:59:07 Type 2 diabetes mellitus without complication 546491918 E11.9 Essential hypertension 20857874 I10 Advised to take medication as prescribed . Type 2 rox betes mellitus 64456873 E11.9 Encouraged to transition to Lantus nightly and we will start backing off these medicines once I get her around 7. Asthma 463813692 J45.90 9 [id number] Bebeto Lang MD [address] [place] [address] 03/02/2023 09:35:08 03/02/2023 09:57:24 [id number] Bebeto Lang MD [address] [place] [address] 03/06/2023 08:00:05 03/06/2023 08:24:17 Essential hypertension 93100529 I10 [id number] Bebeto Lang MD [address] [place] [address] 05/22/2023 08:17:03 05/22/2023 08:52:15 Retinopathy due to diabetes mellitus 2052596 E11.3293 Essential hypertension 61779521 I10 Type 2 rox betes mellitus 42163679 E11.9 Hyperlipidemia 92633945 E78.5 [id number] Blaise Alva MD [address],[facility] [address] [place] [address] 06/19/2023 11:22:46 06/19/2023 12:23:07 Cough 24218534 R05.9 Influenza caused by Influenza A virus 326789302 J09.X2 Rest, plenty of fluids, OTC symptomati c treatment. Return for failure to improve over the next several days or sooner if worsening. [id number] Bebeto Lang MD [address] [place] [address] 08/11/2023 09:42:25 08/11/2023 10:41:14 Essential hypertension 56910511 I10 We are going to increase her carvedilol to 12.5 mg twice a day. She needs to monitor blood pressure closely today because of the excessive med losartan she is taken. To ER if her pressure becomes low [id number] Bebeto Lang MD [facility] [address] [place] [address] 09/04/2023 09:20:21 09/04/2023 10:39:44 Type 2 diabetes mellitus without complication 997305931 E11.9 Essential hypertension 61852116 I10 Adult heal th examination 194800478 Z00.00 [id number] Bebeto Lang MD [facility] [address] [facility] [place] [address] 12/18/2023 08:20:12 12/18/2023 09:04:39 Essential hypertension 11417564 I10 Type 2 rox betes mellitus 97272889 E11.9 Muscle pain 71597270 M79 .10 [id number] [facility] [address] [facility] [place] [address] 03/18/2024 08:55:49 03/18/2024 09:47:05 Type 2 diabetes mellitus without complication 070181967 E11.9 Hyperlipidemia 35011602 E78.5 Type 2 rox betes mellitus 21272400 E11.9 Osteoarthritis 731492906 M19.90 Essential hypertension 88188305 I10 [id number] Bebteo Lang MD [facility] [address] [facility] [place] [address] 06/21/2024 08:39:16 06/21/2024 09:39:46 Allergic rhinitis 91837990 J30.9 Type 2 rox betes mellitus 98570840 E11.9 An roman catholic usage of her insulin. We will see what a A1c is today. We will try to get her on a daily dose Essential hypertension 53577247 I10 increase carvedilol 6.5. [id number] Bebeto Lang MD [facility] [place] [address] [facility] [place] [address] 09/20/2024 09:04:03 09/20/2024 09:34:29 Essential hypertension 81435934 I10 Type 2 rox betes mellitus 72470008 E11.9 Allergic rhinitis 405342 04 J30.9 Acquired hypothyroidism 751111153 E03.9 Mixed hyperlipidemia 267 771742 E78.2 Pain of mu ltiple joints 23427226 M25.50 Health Concerns Section Related Observation LastModified by Organization Detai ls LastModified Time None Recorded Concern Status LastModified by Organization Details LastModified Time None Recorded Advance Directives Directive N: Payers Insurance Date Sequence Insurance Name Policy Number Policy Montalvo Covered Member ID Montalvo Member ID Guarantor Name 09/20/2024 1 [place] [id number] Sulema C Vest [id number] Sulema C Vest 06/19/2023 1 [employer] [place] Sulema C Vest [id number] Sulema C Vest 10/10/2020 SLIDING FEE SCHEDULE - DISCOUNT Sulema C Vest Notes Date Note Type Note Provider Name and Address Organization Details Recorded Time 09/04/2023 text/html 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 She is history of diabetes hypertension both of which are under relatively poor control. She has been doing better with her glucose readings since we started insulin. She is still high marked improvement compared this time. Her blood pressure is high this morning she has a large white coat component to her blood pressure. She has been checking some high readings on her home monitor Bebeto Lang MD [address], [place], [address], [facility] 09/04/2023 12:54:03 12/18/2023 text/html She is here for follow-up. She is history of diabetes. Her last A1c while still high showed improvement. She reports her running readings are in the 150s but still was preop of around 300 nighttime. Blood pressure seems to be stable on current medical regimen. Takes carvedilol and losartan HCTZ. Bebeto Lang MD [address], [place], [address], [facility] 12/18/2023 10:49:32 03/18/2024 text/html She is here for follow-up. She is history of diabetes which until recently has been under very poor control. She is doing better and being more compliant. Her A1c fingerstick today is 6.6 which is markedly improved from last readings. Her blood pressure continues to be elevated. She is having issues controlling her blood pressure she is on losartan HCTZ. Agreeable to try the medications. She uses Voltaren gel for pain in her feet and hands needs a prescription refill. She is refusing influenza vaccine. Bebeto Lang MD [address], [place], [address], [facility] [place] 03/18/2024 10:13:37 06/21/2024 text/html She is here for follow-up. She is history of diabetes for which she is on p.o. medications and insulin. Her last A1c was below 7. We have been talking about her insulin dosing and she has been on nothing use her at the moment. She reports her glucose is greater than 150 she will take 75 units of Lantus lipids under that she will go without for the day. She has been very hard to control in noncompliant until recently. Her blood pressure still elevated. She is on carvedilol 3.125 mg daily. She is history of hyperlipidemia. She is on simvastatin. She is due for fasting lipids today. Bebeto Lang MD [address], [place], [address], [facility] & [place] 06/21/2024 09:36:10 09/20/2024 text/html she is here for follow-up. She is history of diabetes which is insulin dependent, hypertension, allergic rhinitis. In regards her blood pressure she is still somewhat elevated today. She is on lisinopril and carvedilol. Due for BUN creatinine. Regarding her diabetes she still has less than stellar control but markedly improved over the past year. She was running in the 12 for an A1c and now she is around 7-8. Her glucose continues to be a bit high per her report. She had a urine for microalbuminuria this year already. her last TSH level was a bit off. Her TSH was just above 5. Needs a repeat today. She was arthritic joint pain for which he takes p.r.n. ibuprofen p.r.n. diclofenac gel. Bebeto Lang MD [address], [place], [address], [facility] & [place] 09/20/2024 10:32:52 OBGyn Episode No OBEpisode recorded.
--- OUTSIDE RECORDS SUMMARY | 2024-10-20 22:41 | XMS_ITS | Continuity of Care Document ---
Author Organization [facility] [place] Address [address] [facility] [place] [address] Care Team Providers Care Campus Ambassador Name Role Phone BEBETO LANG Primary Care Provider Assessment No assessment recorded. Plan of Treatment Reminders Order Date Submit Date Provider Last Modified By Organization Details Last Modified Time Details Appointments 3 MONTH FU 15 2024 08:30A Logan Lang MD Not available Not available Not available Lab thyroid panel, serum 2024 025 [facility], [address], [place], [address], 09/21/2024 04:09:17 lipid panel, serum 2024 025 [facility], [address], [place], [address], 09/21/2024 04:09:16 HbA1c (hemoglob in A1c), blood 2024 025 [facility], [address], [address], [place], [address], 09/21/2024 04:09:18 CMP, serum or plasma 2024 025 [facility], [address], [place], [address], 09/21/2024 04:09:15 Referral None recorded. Procedures None recorded. Surgeries None recorded. Imaging None recorded. Medication Orders azelastin e 137 mcg-fluti casone 50 mcg/spray nasal spray 2024 025 [facility], [facility] [address] , [place], [address], 09/20/2024 09:24:02 metformin 850 mg tablet 2024 025 [facility]., [address], [place], [address], 09/20/2024 09:24:05 ibuprofen 800 mg tablet 2024 025 [facility], [facility]., [address], [place], [address], 09/20/2024 09:24:08 diclofena c 1 % topical gel 2024 025 [facility], [facility]., [address] , [place], [address], 09/20/2024 09:24:05 carvedilo l 12.5 mg tablet 2024 025 [facility], [facility]., [address], [place], [address], 09/20/2024 09:24:01 Patient TargetsNo targets recorded. Patient InstructionsNo instructions recorded. Reason for Referral None Reported. Procedures Surgical History Date Name Laterality Status Provider Name and Address Organization Details Recorded Time 1 completed Tamie Shepard MA - [facility] - [place] & [place] 07/29/2022 13:22:37 Most Recent Mammogram completed Shanna Kirkland MA - [facility] & [place] 12/14/2023 14:23:08 Tubal Ligation completed Jaciel Hernandes MA - [facility] & [place] 02/10/2024 17:08:38 section completed Shanna Marita [place] - [facility] & [place] 08/30/2024 14:19:05 Imaging Results None recorded. Procedure [...] azelastine 137 mcg (0.1 %) nasal spray [place] 2 sprays twice a day by intranasa [...] 137 mcg-flutica sone 50 mcg/spray nasal spray [place] 1 spray twice a day by intranasa l route. 2024 active Not Available Not Available Not Avai lable dapaglifloz in propanediol 10 mg tablet TAKE ONE TABLET BY MOUTH EVERY DAY 03/17/ 2025 active Not Available Not Available Not Avai lable insulin glargine-yf gn (U-100) 100 unit/mL (3 mL) subcutaneou s pen 12/17 completed Not Available Not Available Not Available Breyna 160 mcg-4.5 mcg/actuati on HFA aerosol inhaler Inhale 2 puffs twice a day by inhalatio n route. active Not Available Not Available No t Available Vitals None Recorded Social History Question Answer Notes LastModified by Organizat ion Details LastModified Time Tobacco Smoking Status Never Smoker Tamie Cousaul [facility], [facility] & [place] 07/29/2022 13:22:38 Do You Have An Advance Directive? No [email or web address] Information not available 07/29/2022 Are You Blind Or Do You Have Difficulty Seeing? Yes [email or web address] Information not available 07/29/2022 What Was The Date Of Your Most Recent Tobacco Screening? 12/17/2023 Information not available 02/10/2024 Are You Passively Exposed To Smoke? No [email or web address] Information not available 07/29/2022 How Much Tobacco Do You Smoke? No Information not available 02/10/2024 Sex: Unknown Functional Status Question Answer Note LastModified by Organizat ion Details LastModified Time Do you use any illicit or recreational drugs? No [email or web address] Information not available 07/29/2022 What is your level of alcohol consumption? None [email or web address] Information not available 07/29/2022 Do you or have you ever used smokeless tobacco? Never used [email or web address] tobacco Information not available 02/10/2024 What is your exercise level? Occasional [email or web address] Information not available 07/29/2022 Mental Status Question Answer Note LastModified by Organization D etails LastModified Time Do you feel stressed (tense, restless, nervous, or anxious, or unable to sleep at night)? [id number] Information not available 07/29/2022 Family History Relationship Description Onset Age of this Age Resolved Age Notes LastModified by Organization Details LastModified Time Father Hypertensive disorder [email or web address] Not available 2022 09:13:35 Father Diabetes mellitus [email or web address] Not available 03/18 08:56:08 Father Accidental physical contact killed in a car accide nt [email or web address] Not available 03/18/2024 08:56:08 Father Family member [email or web address] Not available 03/18 08:56:08 Father Disorder of endocrine system pt. added direct ly (12/16) [email or web address] Not available 12/17/2023 17:26:08 Mother Hypertensive disorder [email or web address] Not available 2022 09:13:35 Mother Diabetes mellitus [email or web address] Not available 03/18 08:56:08 Mother Family member [email or web address] Not available 03/18 08:56:08 Mother Disorder of [...] Influenza, split virus, quadrivalent, PF 03/01/2020 completed [facility] - [facility] - [place] & [place] 11/18/2022 14:17:21 Past Encounters Encounter ID Performer Location Encounter Start Date Encounter Closed Date Diagnosis/Indication Diagnosis SNOMED-CT Code Diagnosis ICD10 Code Diagnosis Note [id number] Bebeto Lang MD [facility] [place] [address] [place] [address] 09/20/2024 09:04:03 09/20/2024 09:34:29 Essential hypertension 66304925 I10 Type 2 rox betes mellitus 63839946 E11.9 Allergic rhinitis 812061 04 J30.9 Acquired hypothyroidism 484405603 E03.9 Mixed hyperlipidemia 267 439553 E78.2 Pain of mu ltiple joints 90749542 M25.50 Health Concerns Section Related Observation LastModified by Organization Detai ls LastModified Time None Recorded Concern Status LastModified by Organization Details LastModified Time None Recorded Payers Encounter Date Sequence Insurance Name Policy Number Policy Montalvo Covered Member ID Montalvo Member ID Guarantor Name 09/20/2024 1 [place] [id number] Sulema Deras [id number] Sulema Deras Notes Date Note Type Note Provider Name and Address Organization Details Recorded Time 09/20/2024 text/html she is here for follow-up. [...] ibuprofen p.r.n. diclofenac gel. Bebeto Lang MD [address], [place], [address], [facility] - [place] & [place] 09/20/2024 10:32:52 OBGyn Episode No OBEpisode recorded.
--- NOTE | 2024-10-20 22:57 | XR_ITS ---
PROCEDURE INFORMATION: Exam: XR Chest Exam date and time: 10/20/2024 11:08 PM Age: 49 years old Clinical indication: Shortness of breath; Additional info: SOA, vomiting TECHNIQUE: Imaging protocol: Radiologic exam of the chest. Views: 1 view. COMPARISON: CT HR CHEST X3 03/03/2023 3:04 PM FINDINGS: Lungs: Minimal right lower lung zone subsegmental atelectasis. Pleural spaces: Unremarkable. No pleural effusion. No pneumothorax. Heart/Mediastinum: Unremarkable. No cardiomegaly. Bones/joints: Unremarkable. IMPRESSION: Minimal subsegmental atelectasis.
[2024-10-20 23:01] VITALS: BP 94/52; PULSE 101; O2SAT 96
--- NOTE | 2024-10-20 23:16 | ECG_ITS ---
APPROVED REPORT Exam: Resting ECG HR:101 bpm ECG Measurements Heart Rate 101 AXES LA 143 P -5 QRSd 136 QRS -32 QT 348 T 68 QTc 406 Conclusion SINUS TACHYCARDIA LEFT AXIS DEVIATION [QRS AXIS < -30] INTRAVENTRICULAR CONDUCTION DELAY [130+ ms QRS DURATION] LEFT VENTRICULAR HYPERTROPHY AND ST-T CHANGE [VOLTAGE CRITERIA PLUS ST/T ABNORMALITY] ABNORMAL ECG UNCONFIRMED REPORT Electronically signed by : ALBAN MCKENNA, 10/21/2024 04:11:55
[2024-10-20 23:17] LABS: VBG Base Excess -8.3 mmol/L (-2.4-2.3); VBG Oxygen Saturation 80.2 % (50-70); VBG PCO2 36.6 mmol/L (35-51); VBG PH 7.31 mmol/L (7.31-7.41); VBG PO2 47.1 mmol/L (28-40); VBG Total CO2 19.1 mmol/L (23-27)
[2024-10-20 23:18] LABS: Lactate Venous 2.3 mmol/L (0.4-2.0)
[2024-10-20 23:19] LABS: Basophils % 0.1 % (0.1-2.0); Eosinophils % 0.1 % (0.1-12.0); Hematocrit 27.1 % (37.0-47.0); Immature Granulocytes # 0.06 10^3uL; Immature Granulocytes % 0.6 %; Lymphocytes # 0.2 K/mm3 (0.7-4.5); Lymphocytes % 2.2 % (10-50); Mean Corpuscular HGB Conc 33.2 g/dL (31.8-35.4); Mean Corpuscular Hemoglobin 29.3 pg (27.0-31.2); Mean Corpuscular Volume 88.3 fl (81-99); Monocytes # 0.2 K/mm3 (0.1-1.0); Nucleated Red Blood Cells # 0 10^3/uL; Nucleated Red Blood Cells % 0 %; Platelet Count 219 K/mm3 (142-424); Red Blood Count 3.07 M/mm3 (4.20-5.40); Red Cell Distribution Width 14.2 % (11.5-17.5); Red Cell Distribution Width-SD 45.2 fL; White Blood Count 9.4 K/mm3 (4.8-10.8)
[2024-10-20 23:21] LABS: MANUAL DIFFERENTIAL MANUAL DIFFERENTIAL (MANUAL DIFF)
[2024-10-20 23:30] VITALS: BP 102/54; PULSE 98; O2SAT 95
[2024-10-20 23:30] LABS: Lipase 30 U/L (23-300)
[2024-10-20 23:31] LABS: Alanine Aminotransferase 31 U/L (12-78); Albumin Level 3.7 g/dl (3.5-5.0); Albumin/Globulin Ratio 1.1 (1.1-1.8); Alkaline Phosphatase 165 U/L (38-126); Anion Gap 20.4 mEq/L (5-15); Aspartate Amino Transferase 39 U/L (14-36); Bilirubin,Total 0.4 mg/dl (0.2-1.3); Blood Urea Nitrogen 68 mg/dl (7-17); Carbon Dioxide 17 mmol/L (22.0-30.0); Chloride 98 mmol/L (98-107); Creatinine Clearance Estimated 33 mL/min (50-200); Estimated Glomerular Filt Rate 13 ml/min (>60); GFR (African American) 16 ML/MIN (>60); Globulin 3.5 g/dL (1.3-3.2); Glucose 274 mg/dl (74-100); Lactic Acid 1.6 mmol/L (0.7-2.1); Potassium 3.4 mmoL/L (3.5-5.1); Sodium 132 mmol/L (136-145); Total Protein,Serum 7.2 g/dl (6.3-8.2)
--- NOTE | 2024-10-20 23:31 | ED_ITS ---
Discharge Plan Disposition Patient Disposition: Xfer Other Prescriptions Prescriptions: No Action ammonium lactate 12 % cream 1 applic topical BID Qty: 385 1RF carvedilol 12.5 mg tablet PO ONCE levothyroxine [Synthroid] 25 mcg tablet PO DAILY losartan-hydrochlorothiazide 100-25 mg tablet PO DAILY insulin glargine [Lantus Solostar U-100 Insulin] 100 unit/mL (3 mL) insulin pen SQ ONCE (DME) Diabetic Shoes (DME) Misc See Rx Instructions .ROUTE .MEDSUPPLY Qty: 1 0RF Rx Instructions: [facility] Please dispense one (1) pair of Diabetic shoes with inserts metformin 850 mg tablet 850 mg PO TID glimepiride 4 mg tablet 4 mg PO DAILY carvedilol 6.25 mg tablet 6.25 mg PO BID Rx Instructions: must administer with a meal/food levocetirizine 5 mg tablet 5 mg PO DAILY Farxiga 10 mg tablet 10 mg PO DAILY Januvia 100 mg tablet 100 mg PO DAILY simvastatin 20 mg tablet 20 mg PO DAILY ibuprofen 800 mg tablet 800 mg PO ONCE budesonide-formoterol [Symbicort] 80-4.5 mcg/actuation HFA aerosol inhaler 1 puff inhalation BID azelastine-fluticasone 137-50 mcg/spray spray,non-aerosol 1 spray intranasal ONCE mupirocin 2 % ointment 1 applic topical BID 14 Days Qty: 22 2RF Referrals Follow up/Referrals: Gurvinder Lang MD [Primary Care Provider, Medical] - See instructions Clinical Impressions Clinical Impression: Renal failure, Pyelonephritis, Diabetes Instructions Patient Instructions: DI for Diarrhea and Traveler's Diarrhea -- Adult, DI for Diarrhea and Traveler's Diarrhea -- Child, DI for Nausea -- Adult, DI for Nausea -- Child Print Language Print Language: Bulgarian Discharge ED Provider: Kirit Wan General Adult HPI <Mayte Davis DO - Last Filed: 10/20/24 23:35> General Chief complaint: Nausea/Vomiting/Diarrhea Stated complaint: N/V,weakness Time Seen by Provider: 10/20/24 22:33 Mode of Arrival: Ambulatory Source of Information: Patient Description of Symptoms (Recalled from ER Triage Doc. by RN): patient states nausea and vomiting that started on Thursday. patient states she feels SOB with exertion. patient does have inhalers but has not had to use them. History of Present Illness HPI narrative: This patient is a 49-year-old female with a history of insulin-dependent diabetes, asthma, hypothyroidism, hypertension, hyperlipidemia presenting to the emergency department for evaluation with concern for nausea, vomiting, shortness of breath. Patient notes that she started having nausea and vomiting on Thursday with mild epigastric discomfort which she thought may be secondary to the vomiting. No significant localizable abdominal pain. She also notes that she is starting to have some diarrhea but she has not been throughout this time. She denies any urinary symptoms. She notes that as this is gone on, she started to have worsening shortness of breath, especially with exertion. She has inhalers but has not had to use them despite the shortness of breath. She states it is not really a feeling of asthma flare of her shortness of breath like she has had in the past, she states that it feels like she just cannot get a good deep breath then. No chest pain or other concerns noted. She does note that she has had high blood sugar readings at home Related Data Home Medications ?Medication ?Instructions ?Recorded ?Confirmed budesonide-formoterol HFA 80 1 puff inhalation BID 05/1909/26/24 mcg-4.5 mcg/actuation aerosol inhaler (Symbicort) carvedilol 6.25 mg tablet 6.25 mg PO BID 12/26/2206/21 dapagliflozin propanediol 10 mg 10 mg PO DAILY 3 09/26/24 tablet (Farxiga) glimepiride 4 mg tablet 4 mg PO DAILY 12/26/2209/26 ibuprofen 800 mg tablet 800 mg PO ONCE 12/26/2206/21 levocetirizine 5 mg tablet 5 mg PO DAILY 12/26/2206/21 metformin 850 mg tablet 850 mg PO TID 12/26/2209/26 simvastatin 20 mg tablet 20 mg PO DAILY 12/26/2206/21 sitagliptin phosphate 100 mg 100 mg PO DAILY 12/26/22 09/26/24 tablet (Januvia) azelastine 137 mcg-fluticasone 50 1 spray intranasal O NCE 02/25/25 06/02/25 mcg/spray nasal spray carvedilol 12.5 mg tablet mg PO ONCE 10/13/24 10/13/24 insulin glargine 100 unit/mL (3 unit SQ ONCE 10/13/24 10/13/24 mL) subcutaneous pen (Lantus Solostar U-100 Insulin) levothyroxine 25 mcg tablet mcg PO DAILY 10/13/2409/25 (Synthroid) losartan 100 tab PO DAILY 10/13/24 mg-hydrochlorothiazide 25 mg tablet Previous Rx's ?Medication ?Instructions ?Recorded ammonium lactate 12 % topical cream 1 applic topical B ID #385 grams 06/07/24 mupirocin 2 % topical ointment 1 applic topical BID in fection 14 07/05/24 days #22 grams Diabetic Shoes (DME) #1 ea 10/13/24 Allergies Allergy/AdvReac Type Severity Reaction Status Date / Time No Known Allergies Allergy Verified 10/13/24 09:51 [facility] <Mayte Davis DO - Last Filed: 10/20/24 23:35> [facility] Disclaimer: The information contained in this section may have been updated after the patient was seen, as this information can be updated by other users. Medical History Dyspnea Restrictive lung disease ILD (interstitial lung disease) Asthma Surgical History History of section Family History Other Cancer Diabetes Hypertension Social History Smoking Status: Never smoker alcohol intake: never current occupational status: other Travel in the last 8 weeks?: None Have you lived/traveled outside [place] in past 30 days?: No Contact w/someone who lives/traveled outside US past 30 days?: No Exposure to someone with infectious disease in past 14 days?: No Do you have a fever (greater than 100.4 F or 38 C)?: No Have you tested positive for COVID-19?: No Exposed to someone with COVID-19 in past 14 days?: No Do you have a sore throat?: No Do you have a cough?: No Do you have any weakness?: No Do you have any diarrhea?: No Are you experiencing any unusual bleeding?: No Do you have any muscle aches/pain?: Yes Do you have any abdominal pain?: Yes Are you experiencing loss of taste or smell?: No <Mayte Davis DO - Last Filed: 10/20/24 23:35> ROS Obtained: Yes All systems reviewed & no additional complaints except as documented Physical Exam <Mayte Davis DO - Last Filed: 10/20/24 23:35> General General appearance: alert, in no apparent distress and obese Head Head exam: atraumatic and normocephalic Eye Eye exam: Present normal appearance, PERRL and EOMI ENT ENT exam: Present normal exam, normal oropharynx, mucous membranes moist and normal external ear exam Neck Neck exam: Present normal inspection, full ROM and trachea midline; Absent tenderness Chest Chest inspection: Present normal inspection and symmetric chest wall rise; Absent tenderness Respiratory Respiratory exam: Present normal lung sounds bilaterally; Absent respiratory distress, wheezes, stridor or accessory muscle use Cardiovascular Cardiovascular exam: Present normal rhythm and tachycardia Abdominal Exam Abdominal exam: Present soft; Absent distention, tenderness or guarding Extremities Exam Extremities exam: Present normal inspection, full ROM and normal capillary refill; Absent tenderness or edema Back Exam Back exam: Present normal inspection and full ROM; Absent tenderness Neurological Exam Neurological exam: Present alert, oriented X3, CN II-XII intact and normal gait; Absent motor sensory deficit Psychiatric Psychiatric exam: Present normal affect and normal mood Skin Skin exam: Present warm and dry Medical Decision Making <Mayte Davis DO - Last Filed: 10/20/24 23:35> Medical Records Medical records reviewed: Yes I reviewed the patient's medical records. Screening: Per USPSTF and CDC recommendations, given the prevalence of disease in our region, it is our hospital?s policy to screen for HIV and viral Hepatitis for all patients aged 18 and over and those with ongoing risk factors. Otto Inquiry Pt receiving controlled substance: No Vital Signs: 10/20/24 22:31 10/20/24 22:32 10/20/24 23:01 Temperature 99.7 F H Temperature Source Oral Pulse Rate 103 H 101 H Pulse Rate [Left] 109 H Respiratory Rate 22 Blood Pressure 120/62 94/52 L Blood Pressure [Right Arm] 120/62 Blood Pressure Mean 77 66 Blood Pressure Mean [Right Arm] 81 Blood Pressure Position [Right Arm] Sitting 02 Sat by Pulse Oximetry 98 96 96 Oxygen Delivery Method Room Air 10/20/24 23:30 10/21/24 01:01 10/21/24 01:32 Temperature Temperature Source Pulse Rate 98 H 92 H 92 H Pulse Rate [Left] Respiratory Rate Blood Pressure 102/54 L 113/55 L 91/48 L Blood Pressure [Right Arm] Blood Pressure Mean 65 68 61 Blood Pressure Mean [Right Arm] Blood Pressure Position [Right Arm] 02 Sat by Pulse Oximetry 95 97 95 Oxygen Delivery Method Lab Data Lab results reviewed: Yes I reviewed the patient's lab results. Lab Results 10/20/24 23:08: WBC 9.4, RBC 3.07 L, Hgb 9.0 L, Hct 27.1 L, MCV 88.3, MCH 29.3, MCHC 33.2, RDW 14.2, Plt Count 219, MPV 9.0, Neut % (Auto) 95.0 H, Lymph % (Auto) 2.2 L, [place] % (Auto) 2.0, Eos % (Auto) 0.1, Baso % (Auto) 0.1, Neut # (Auto) 9.0 H, Lymph # (Auto) 0.2 L, [place] # (Auto) 0.2, Eos # (Auto) 0.0, Baso # (Auto) 0.0, Total Counted 100, Neutrophils % (Manual) 96 H, Lymphocytes % (Manual) 4 L, Platelet Estimate Normal, Polychromasia 1+, Poikilocytosis 1+, Anisocytosis 1+, Macrocytosis 1+, Target Cells 1+, Tear Drop Cells 1+, D-Dimer 6.83 H, VBG pH 7.31, VBG pCO2 36.6, VBG pO2 47.1 H, VBG HCO3 18.0 L, VBG Total CO2 19.1 L, VBG O2 Saturation 80.2 H, VBG Base Excess -8.3 L, VBG Lactic Acid 2.3 H, Sodium 132 L, Potassium 3.4 L, Chloride 98, Carbon Dioxide 17 L, Anion Gap 20.4 H, BUN 68 H, Creatinine 3.60 H, Estimated Creat Clear 33, Estimated GFR 13 L*, Est GFR ( Amer) 16 L*, Glucose 274 H, Hemoglobin A1c 10.0 H, Lactate 1.6, Calcium 9.0, Phosphorus 3.0, Magnesium 2.0, Total Bilirubin 0.4, A ST 39 H, ALT 31, Alkaline Phosphatase 165 H, Troponin I < 0.01, Total Protein 7.2, Albumin 3.7, Globulin 3.5 H, Albumin/Globulin Ratio 1.1, Lipase 30, Acetone Level None detected 10/20/24 23:52: Urine Color Yellow, Urine Appearance Cloudy, Urine pH 5.5, Ur Specific [place] 1.020, Urine Protein 2+ A, Urine Glucose (UA) 3+, Urine Ketones Negative, Urine Blood 3+ A, Urine Nitrate Negative, Urine Bilirubin Negative, Urine Urobilinogen 0.2, Ur Leukocyte Esterase 1+ A, Urine RBC 20-50, Urine WBC 10-20, Ur Squamous Epith Cells 10-20, Amorphous Sediment 1+, Urine Bacteria 2+ 10/20/24 23:08 10/20/24 23:08 Orders (Tests/Meds): ED MEDICATIONS Discontinued Medications Generic Name Dose Route Start Last Admin Trade Name Violette PRN Reason Stop Dose Admin Lactated Ringer's 1,000 mls @ 999 mls/hr 10/20/24 23:33 10/20/24 23:40 Lactated Ringer's 1000 Ml Bag IV 10/21/24 00:33 999 mls/hr .Q1H1M ONE Administration Lactated Ringer's 1,000 mls @ 999 mls/hr 10/21/24 00:30 10/21/24 00:37 Lactated Ringer's 1000 Ml Bag IV 10/21/24 01:30 999 mls/hr .Q1H1M FERNIE Administration Ceftriaxone Sodium 2 gm/ 100 mls @ 200 mls/hr 10/21/24 01:18 10/21/24 01:28 Sodium Chloride IV 10/21/24 01:47 200 mls/hr ONCE ONE Administration Iopamidol 70 ml 10/21/24 00:51 10/21/24 00:52 Iopamidol-370 (76%);100ml Bottle IV 10/21/24 00:52 70 ml ONCE ONE Administration Ondansetron HCl 4 mg 10/20/24 23:33 10/20/24 23:40 Ondansetron 4mg/2ml Vial IV 10/20/24 23:34 4 mg ONCE ONE Administration Sodium Chloride 50 ml 10/21/24 00:51 10/21/24 00:52 0.9 % Sodium Chloride 50 Ml Vial IV 10/21/24 00:52 50 ml ONCE ONE Administration Sodium Chloride 10 ml 10/21/24 00:51 10/21/24 00:52 Sodium Chloride 0.9% 10ml Syr (Rad Only) IV 10/21/24 00:52 10 ml ONCE ONE Administration ORDERS Category Date Time Status CT abdomen pelvis w con Stat Cat Scan 10/21/24 00:[address] angio chest PE protocol Stat Cat Scan 10/21/24 00:24 Completed XR chest portable Stat Exams 10/20/24 22:57 Completed Acetone, Serum (Rapid) Stat Lab 10/20/24 23:08 Completed Complete Blood Count Auto Diff Stat Lab 10/20/24 23:08 Completed Comprehensive Metabolic Panel Stat Lab 10/20/24 23:08 Completed D-Dimer Stat Lab 10/20/24 23:08 Completed Hemoglobin A1C Stat Lab 10/20/24 23:08 Completed Lactic Acid Stat Lab 10/20/24 23:08 Completed Lipase Stat Lab 10/20/24 23:08 Completed Magnesium Stat Lab 10/20/24 23:08 Completed Phosphorous Stat Lab 10/20/24 23:08 Completed Trop I [Troponin I] Stat Lab 10/20/24 23:08 Completed Urinalysis and Microscopic Stat Lab 10/20/24 23:52 Completed Blood Culture Stat Micro 10/20/24 23:26 Received Urine Culture Stat Micro 10/20/24 23:52 Received Venous Blood Gas Stat RT 10/20/24 23:08 Completed ECG Data Tracing #1: I reviewed this ECG and interpreted as documented below: Sinus tachycardia with a ventricular to 101 bpm. Left axis deviation. Intraventricular conduction delay. No acute ST changes concerning for STEMI. ECG initial impression date: 10/20/24 ECG initial impression time: 23:22 Medical Decision Narrative: In summary, this patient is a 49-year-old female presenting to the Emergency Department for evaluation of nausea, vomiting, shortness of breath. Differential diagnoses considered include but are not limited to DKA, HHS, dehydration, electrolyte derangements, TAMARA, gastroenteritis, ACS, dysrhythmia, PE, cholecystitis, pancreatitis among others. Ruling out the most morbid conditions drove assessment. It should be noted patient's history includes obesity, insulin-dependent diabetes, hypertension, hyperlipidemia and asthma which may or may not be at goal therapy. This complicates all aspects of care by increasing patient's risk for morbidity. I reviewed patient's past medical records and noted prior evaluations by podiatry in the past for diabetic foot wounds. On exam, the patient is anxious appearing, mildly tachypneic and tachycardic. She has dry mucous membranes. Abdominal exam is benign. Cardiopulmonary exam is reassuring with normal breath sounds. Workup included broad lab evaluation to evaluate for infectious, metabolic, cardiac issues especially to evaluate for DKA, HHS. Blood cultures were sent and are pending just to be on the safe side. Patient was given a liter bolus of IV fluids to start out with as well as IV Zofran.. EKG obtained is reassuring with exception of mild sinus tachycardia and intraventricular conduction delay. Patient care signed out to oncoming provider, Dr. Wan, pending remainder of workup and disposition. <Kirit Wan MD - Last Filed: 10/21/24 02:39> Vital Signs: 10/20/24 22:31 10/20/24 22:32 10/20/24 23:01 Temperature 99.7 F H Temperature Source Oral Pulse Rate 103 H 101 H Pulse Rate [Left] 109 H Respiratory Rate 22 Blood Pressure 120/62 94/52 L Blood Pressure [Right Arm] 120/62 Blood Pressure Mean 77 66 Blood Pressure Mean [Right Arm] 81 Blood Pressure Position [Right Arm] Sitting 02 Sat by Pulse Oximetry 98 96 96 Oxygen Delivery Method Room Air 10/20/24 23:30 10/21/24 01:01 10/21/24 01:32 Temperature Temperature Source Pulse Rate 98 H 92 H 92 H Pulse Rate [Left] Respiratory Rate Blood Pressure 102/54 L 113/55 L 91/48 L Blood Pressure [Right Arm] Blood Pressure Mean 65 68 61 Blood Pressure Mean [Right Arm] Blood Pressure Position [Right Arm] 02 Sat by Pulse Oximetry 95 97 95 Oxygen Delivery Method Lab Data Lab Results 10/20/24 23:08: WBC 9.4, RBC 3.07 L, Hgb 9.0 L, Hct 27.1 L, MCV 88.3, MCH 29.3, MCHC 33.2, RDW 14.2, Plt Count 219, MPV 9.0, Neut % (Auto) 95.0 H, Lymph % (Auto) 2.2 L, [place] % (Auto) 2.0, Eos % (Auto) 0.1, Baso % (Auto) 0.1, Neut # (Auto) 9.0 H, Lymph # (Auto) 0.2 L, [place] # (Auto) 0.2, Eos # (Auto) 0.0, Baso # (Auto) 0.0, Total Counted 100, Neutrophils % (Manual) 96 H, Lymphocytes % (Manual) 4 L, Platelet Estimate Normal, Polychromasia 1+, Poikilocytosis 1+, Anisocytosis 1+, Macrocytosis 1+, Target Cells 1+, Tear Drop Cells 1+, D-Dimer 6.83 H, VBG pH 7.31, VBG pCO2 36.6, VBG pO2 47.1 H, VBG HCO3 18.0 L, VBG Total CO2 19.1 L, VBG O2 Saturation 80.2 H, VBG Base Excess -8.3 L, VBG Lactic Acid 2.3 H, Sodium 132 L, Potassium 3.4 L, Chloride 98, Carbon Dioxide 17 L, Anion Gap 20.4 H, BUN 68 H, Creatinine 3.60 H, Estimated Creat Clear 33, Estimated GFR 13 L*, Est GFR ( Amer) 16 L*, Glucose 274 H, Hemoglobin A1c 10.0 H, Lactate 1.6, Calcium 9.0, Phosphorus 3.0, Magnesium 2.0, Total Bilirubin 0.4, A ST 39 H, ALT 31, Alkaline Phosphatase 165 H, Troponin I < 0.01, Total Protein 7.2, Albumin 3.7, Globulin 3.5 H, Albumin/Globulin Ratio 1.1, Lipase 30, Acetone Level None detected 10/20/24 23:52: Urine Color Yellow, Urine Appearance Cloudy, Urine pH 5.5, Ur Specific [place] 1.020, Urine Protein 2+ A, Urine Glucose (UA) 3+, Urine Ketones Negative, Urine Blood 3+ A, Urine Nitrate Negative, Urine Bilirubin Negative, Urine Urobilinogen 0.2, Ur Leukocyte Esterase 1+ A, Urine RBC 20-50, Urine WBC 10-20, Ur Squamous Epith Cells 10-20, Amorphous Sediment 1+, Urine Bacteria 2+ Orders (Tests/Meds): ED MEDICATIONS Discontinued Medications Generic Name Dose Route Start Last Admin Trade Name Freq PRN Reason Stop Dose Admin Lactated Ringer's 1,000 mls @ 999 mls/hr 10/20/24 23:33 10/20/24 23:40 Lactated Ringer's 1000 Ml Bag IV 10/21/24 00:33 999 mls/hr .Q1H1M ONE Administration Lactated Ringer's 1,000 mls @ 999 mls/hr 10/21/24 00:30 10/21/24 00:37 Lactated Ringer's 1000 Ml Bag IV 10/21/24 01:30 999 mls/hr .Q1H1M FERNIE Administration Ceftriaxone Sodium 2 gm/ 100 mls @ 200 mls/hr 10/21/24 01:18 10/21/24 01:28 Sodium Chloride IV 10/21/24 01:47 200 mls/hr ONCE ONE Administration Iopamidol 70 ml 10/21/24 00:51 10/21/24 00:52 Iopamidol-370 (76%);100ml Bottle IV 10/21/24 00:52 70 ml ONCE ONE Administration Ondansetron HCl 4 mg 10/20/24 23:33 10/20/24 23:40 Ondansetron 4mg/2ml Vial IV 10/20/24 23:34 4 mg ONCE ONE Administration Sodium Chloride 50 ml 10/21/24 00:51 10/21/24 00:52 0.9 % Sodium Chloride 50 Ml Vial IV 10/21/24 00:52 50 ml ONCE ONE Administration Sodium Chloride 10 ml 10/21/24 00:51 10/21/24 00:52 Sodium Chloride 0.9% 10ml Syr (Rad Only) IV 10/21/24 00:52 10 ml ONCE ONE Administration ORDERS Category Date Time Status CT abdomen pelvis w con Stat Cat Scan 10/21/24 00:[address] angio chest PE protocol Stat Cat Scan 10/21/24 00:24 Completed XR chest portable Stat Exams 10/20/24 22:57 Completed Acetone, Serum (Rapid) Stat Lab 10/20/24 23:08 Completed Complete Blood Count Auto Diff Stat Lab 10/20/24 23:08 Completed Comprehensive Metabolic Panel Stat Lab 10/20/24 23:08 Completed D-Dimer Stat Lab 10/20/24 23:08 Completed Hemoglobin A1C Stat Lab 10/20/24 23:08 Completed Lactic Acid Stat Lab 10/20/24 23:08 Completed Lipase Stat Lab 10/20/24 23:08 Completed Magnesium Stat Lab 10/20/24 23:08 Completed Phosphorous Stat Lab 10/20/24 23:08 Completed Trop I [Troponin I] Stat Lab 10/20/24 23:08 Completed Urinalysis and Microscopic Stat Lab 10/20/24 23:52 Completed Blood Culture Stat Micro 10/20/24 23:26 Received Urine Culture Stat Micro 10/20/24 23:52 Received Venous Blood Gas Stat RT 10/20/24 23:08 Completed Tissue Perfus/Sepsis Re-Eval Sepsis Re-Evaluation Performed: Yes Date Performed: 10/21/24 Time Performed: 00:01 Medical Decision Narrative: In summary, this patient is a 49-year-old female presenting to the Emergency Department for evaluation of nausea, vomiting, shortness of breath. Differential diagnoses considered include but are not limited to DKA, HHS, dehydration, electrolyte derangements, TAMARA, gastroenteritis, ACS, dysrhythmia, PE, cholecystitis, pancreatitis among others. Ruling out the most morbid conditions drove assessment. It should be noted patient's history includes obesity, insulin-dependent diabetes, hypertension, hyperlipidemia and asthma which may or may not be at goal therapy. This complicates all aspects of care by increasing patient's risk for morbidity. I reviewed patient's past medical records and noted prior evaluations by podiatry in the past for diabetic foot wounds. On exam, the patient is anxious appearing, mildly tachypneic and tachycardic. She has dry mucous membranes. Abdominal exam is benign. Cardiopulmonary exam is reassuring with normal breath sounds. Workup included broad lab evaluation to evaluate for infectious, metabolic, cardiac issues especially to evaluate for DKA, HHS. Blood cultures were sent and are pending just to be on the safe side. Patient was given a liter bolus of IV fluids to start out with as well as IV Zofran.. EKG obtained is reassuring with exception of mild sinus tachycardia and intraventricular conduction delay. Patient care signed out to oncoming provider, Dr. Wan, pending remainder of workup and disposition. [place] WHITNEY: I assumed care of the patient at the time of handoff from the prior provider. On reassessment, labs independently interpreted by me are significant for serious renal dysfunction with creatinine 3.6, GFR 13. Potassium is low normal. Patient is not acidotic but does have minimally elevated lactate. D-dimer is markedly elevated at 6.8. Blood sugar 274. Negative initial troponin urine with 20-50 RBCs, 10-20 WBCs, 2+ bacteria. I discussed with patient the risks and benefits of contrasted CT imaging to assess for PE given the degree of her renal dysfunction. At this point I think that the benefits outweighed the risks at this time. Patient was agreeable to plan and was scanned for PE and CT abdomen pelvis. CT imaging was independently interpreted by me, no evidence of PE or pneumonia. Patient has marked stranding and inflammation of the left kidney with concern for abscess in the upper pole consistent with pyelonephritis. There is also prominence in the left gonadal vein Patient was initiated on 2 g of IV ceftriaxone for empiric treatment of pyelonephritis. She was given subcu insulin. I considered initiating a insulin drip, but patient is not acidotic and has only a mildly elevated anion gap which may be related more to her renal dysfunction rather than DKA. Given the degree of renal dysfunction associated with complicated pyelonephritis, I do not think that the patient should stay at our facility as we do not have nephrology. I called and spoke with Maureen and both of whom are full. I called and spoke with Lloyd who graciously accepted the patient to the ER for further assessment. Accepting is Dr. De La Rosa. I recommended patient be transferred by EMS but family reports they would prefer to drive. As such, they will be arriving POV. Critical Care <Mayte Davis DO - Last Filed: 10/20/24 23:35> Critical Care Time Critical Care Time: No <Kirit Wan MD - Last Filed: 10/21/24 02:39> Critical Care Time Critical Care Time: Yes Attestation: On 10/20/24, the high probability of a clinically significant, sudden or life threatening deterioration of the following system(s) required my full and direct attention, intervention and personal management. The time I documented below is in addition to time spent performing reported procedures but includes the following listed in this critical care notation. Total Time Total Critical Care Time: 65
[2024-10-20 23:35] LABS: D-Dimer 6.83 ug/mL (0.0-0.5)
[2024-10-20] MEDS: ONDANSETRON 4MG/2ML VIAL 4 MG IV (23:40)
[2024-10-20] MEDS: LACTATED RINGERS 1000ML 1,000 ML 999 ML IV (23:40)
[2024-10-20 23:55] LABS: Lymphocytes % 4 % (10-50); Neutrophils % 96 % (42-76); Total Cells Counted 100
[2024-10-20 23:56] LABS: Platelet Estimate Normal; Poikilocytosis 1+; Polychromasia 1+; Target Cells 1+
[2024-10-20 23:57] LABS: Microscopic, Urine URINE MICROSCOPIC (MICROSCOPIC)
[2024-10-20 23:57] LABS: Anisocytosis 1+; Macrocytosis 1+; Tear Drop Cells 1+
[2024-10-21 00:01] LABS: Appearance,Urine CLOUDY (Clear); Bilirubin,Urine Negative (Negative); Blood, Urine 3+ (Negative); Color,Urine YELLOW (Yellow); Glucose,Urine (UA) 3+ (Negative); Ketones,Urine Negative (Negative); Leukocyte Esterase,Urine 1+ (Negative); Nitrate,Urine Negative (Negative); PH,Urine 5.5 (5.0-8.5); Protein,Urine 2+ (Negative); Urobilinogen,Urine 0.2 EU/dl (0.2)
[2024-10-21 00:05] LABS: Troponin I < 0.01 ng/ml (0.00-0.034)
--- NOTE | 2024-10-21 00:24 | CT_ITS ---
PROCEDURE INFORMATION: Exam: CTA Chest With Contrast Exam date and time: 10/21/2024 12:45 AM Age: 49 years old Clinical indication: Shortness of breath; Additional info: SOA, tachy, elevated dimer TECHNIQUE: Imaging protocol: Computed tomographic angiography of the chest with contrast. Exam focused on the arteries. 3D rendering (Not supervised by radiologist): MIP and/or 3D reconstructed images were created by the technologist. Radiation optimization: All CT scans at this facility use at least one of these dose optimization techniques: automated exposure control; mA and/or kV adjustment per patient size (includes targeted exams where dose is matched to clinical indication); or iterative reconstruction. Contrast material: ISOVUE; Contrast volume: 70 ml; Contrast route: INTRAVENOUS (IV); COMPARISON: CT HR CHEST X3 03/03/2023 3:04 PM FINDINGS: Pulmonary arteries: No central or segmental pulmonary arterial intraluminal filling defects identified. Aorta: Unremarkable. No aortic aneurysm. No aortic dissection. Lungs: Bilateral interstitial ground-glass perihilar opacities and mild Zuleima B-lines. Minimal subsegmental atelectasis of right anterior upper lobe. Pleural spaces: Unremarkable. No pneumothorax. No pleural effusion. Heart: Unremarkable. No cardiomegaly. No pericardial effusion. Lymph nodes: Unremarkable. No enlarged lymph nodes. Bones/joints: Unremarkable. No acute fracture. Soft tissues: Unremarkable. IMPRESSION: 1. No central or segmental pulmonary arterial embolism identified. 2. Mild CHF/pulmonary edema suspected.
--- NOTE | 2024-10-21 00:24 | CT_ITS ---
PROCEDURE INFORMATION: Exam: CT Abdomen And Pelvis With Contrast Exam date and time: 10/21/2024 12:45 AM Age: 49 years old Clinical indication: Abdominal pain; Additional info: Abd pain, vomiting TECHNIQUE: Imaging protocol: Computed tomography of the abdomen and pelvis with contrast. 3D rendering (Not supervised by radiologist): MIP and/or 3D reconstructed images were created by the technologist. Radiation optimization: All CT scans at this facility use at least one of these dose optimization techniques: automated exposure control; mA and/or kV adjustment per patient size (includes targeted exams where dose is matched to clinical indication); or iterative reconstruction. Contrast material: ISOVUE; Contrast volume: 70 ml; Contrast route: IV; COMPARISON: CT HR CHEST X3 03/03/2023 3:04 PM FINDINGS: Liver: Mild fatty infiltration. Measures 25 cm. No mass. Gallbladder and biliary ducts: Calculi without wall thickening. Pancreas: Normal. No ductal dilation. Spleen: Normal. No splenomegaly. Adrenal glands: Normal. No mass. Kidneys and ureters: Diffuse left renal striated nephrograms. Poorly defined hypodense focus with corticomedullary effacement measuring 2.9 x 4.0 cm in left upper pole renal cortex and similar focus in right medial upper pole cortex measuring 2.2 x 2.5 cm. No obvious nephroureterolithiasis or hydroureter. Stomach and bowel: Nonobstructive pattern. Appendix: Not visualized. No pericecal fat stranding. Intraperitoneal space: Unremarkable. No free air. No significant fluid collection. Vasculature: Atherosclerotic calcification of aortoiliac arteries without aneurysm. Prominent left distal gonadal vein with adjacent fat stranding. Lymph nodes: Shotty retroperitoneal lymph nodes. Urinary bladder: Unremarkable as visualized. Reproductive: Unremarkable as visualized. Bones/joints: Unremarkable. No acute fracture. Soft tissues: Unremarkable. IMPRESSION: 1. Diffusely enlarged left kidney with striated nephrograms suspicious for acute pyelonephritis with 2 foci in upper pole suspicious for phlegmon/developing early abscess. Although less likely, can not exclude infiltrative renal mass. Recommend follow-up to document resolution on treatment. 2. Prominent left distal gonadal vein with perivascular fat stranding. Can not exclude segmental thrombosis. 3. Likely reactive retroperitoneal lymph nodes. 4. Cholelithiasis. 5. Hepatomegaly with fatty infiltration.
[2024-10-21 00:29] LABS: Acetone, Serum (Rapid) None Detected (None Detect)
[2024-10-21] MEDS: LACTATED RINGERS 1000ML 1,000 ML 999 ML IV (00:37)
[2024-10-21 00:39] LABS: Amorphous Sediment,Urine 1+ /lpf; Bacteria,Urine 2+ /lpf; RBC,Urine 20-50 #/hpf (0-3)
[2024-10-21] MEDS: 0.9 % SODIUM CHLORIDE 50 ML VIAL IV (00:52)
[2024-10-21] MEDS: IOPAMIDOL-370 (76%);100ML BOTTLE 70 ML IV (00:52)
[2024-10-21] MEDS: SODIUM CHLORIDE 0.9% 10ML SYR (RAD ONLY) 10 ML IV (00:52)
[2024-10-21 01:01] VITALS: BP 113/55; PULSE 92; O2SAT 97
[2024-10-21] MEDS: CEFTRIAXONE SODIUM 2 GM in 0.9 % SODIUM CHLORIDE 100 ML IV (01:28)
[2024-10-21 01:32] VITALS: BP 91/48; PULSE 92; O2SAT 95
--- NOTE | 2024-10-21 01:49 | PC.NURSE ---
Spoke with [facility] transfer [place], no beds available at [facility] at this time
--- NOTE | 2024-10-21 01:53 | PC.NURSE ---
Spoke with transfer center, speaking with at this time
--- NOTE | 2024-10-21 02:18 | PC.NURSE ---
Spoke with [facility], speaking with them at this time.
--- NOTE | 2024-10-21 02:28 | PC.NURSE ---
Spoke with [facility], received the report number and accepting physician to the ED
--- NOTE | 2024-10-21 02:39 | PC.NURSE ---
Report called to [facility] ED and spoke to German RAYMUNDO. Patient is going to [place] ED POV. Patient was sent with Radiology disc and all records of care given here this visit.
[2024-10-21] MEDS: humaLOG 100 UNITS/ML 10ML VIAL (SSI) 6 UNIT SUBCUT (02:45)
[2024-10-21 02:49] VITALS: BP 110/59; PULSE 95; RESP 20; TEMP 36.6; O2SAT 95
--- NOTE | 2024-10-21 02:51 | PC.NURSE ---
Patient was discharged POV to [facility]. Patient kept IV access per [facility] ED request and okay by Umberto WHITNEY
[2024-10-21 03:19] LABS: Reflex Lactic Add Lactic Reflex
--- NOTE | 2024-10-21 14:28 | PC.NURSE ---
JOEY called and spoke to BREANNE Benjamin, at [facility]. pt had cultures drawn at this hospital, preliminary reports come back. TRN faxed preliminary report to [phone].
[2024-10-21 14:42] LABS: Acinetobacter calcoaceticus-ba Not Detected; Bacteroides fragilis Not Detected; CTX-M Not Detected; Candida albicans Not Detected; Candida auris Not Detected; Candida glabrata Not Detected; Candida krusei Not Detected; Candida parapsilosis Not Detected; Candida tropicalis Not Detected; Cryptococcus neoformans/gattii Not Detected; Enterobacter cloacae complex Not Detected; Enterobacterales Detected; Enterococcus faecalis Not Detected; Enterococcus faecium Not Detected; Haemophilus influenzae Not Detected; IMP Not Detected; KPC Not Detected; Klebsiella aerogenes Detected; Klebsiella pneumoniae grp Not Detected; Listeria monocytogenes Not Detected; NDM Not Detected; Neisseria meningitidis Not Detected; OXA-48-like Not Detected; Proteus spp. Not Detected; Pseudomonas aeruginosa Not Detected; Salmonella spp. Not Detected; Serratia marcescens Not Detected; Staphylococcus epidermidis Not Detected; Staphylococcus lugdunensis Not Detected; Staphylococcus spp. Not Detected; Stenotrophomonas maltophilia Not Detected; Streptococcus agalactiae(GrpB) Not Detected; Streptococcus pneumoniae Not Detected; Streptococcus pyogenes Group A Not Detected; Streptococcus spp. Not Detected; VIM Not Detected; mcr-1 Not Detected
[2024-10-21 14:42] LABS: Acinetobacter calcoaceticus-ba Not Detected; Bacteroides fragilis Not Detected; CTX-M Not Detected; Candida albicans Not Detected; Candida auris Not Detected; Candida glabrata Not Detected; Candida krusei Not Detected; Candida parapsilosis Not Detected; Candida tropicalis Not Detected; Cryptococcus neoformans/gattii Not Detected; Enterobacter cloacae complex Not Detected; Enterobacterales Detected; Enterococcus faecalis Not Detected; Enterococcus faecium Not Detected; Haemophilus influenzae Not Detected; IMP Not Detected; KPC Not Detected; Klebsiella aerogenes Detected; Klebsiella pneumoniae grp Not Detected; Listeria monocytogenes Not Detected; NDM Not Detected; Neisseria meningitidis Not Detected; OXA-48-like Not Detected; Proteus spp. Not Detected; Pseudomonas aeruginosa Not Detected; Salmonella spp. Not Detected; Serratia marcescens Not Detected; Staphylococcus epidermidis Not Detected; Staphylococcus lugdunensis Not Detected; Staphylococcus spp. Not Detected; Stenotrophomonas maltophilia Not Detected; Streptococcus agalactiae(GrpB) Not Detected; Streptococcus pneumoniae Not Detected; Streptococcus pyogenes Group A Not Detected; Streptococcus spp. Not Detected; VIM Not Detected; mcr-1 Not Detected
--- NOTE | 2024-10-21 14:42 | PC.NURSE ---
fax successfully sent at [phone]
--- NOTE | 2024-10-22 08:39 | PC.NURSE ---
Blood culture and urine culture results faxed to [facility].
== END 2024-10-21 02:52 | disposition other institution (70) ==
PROVIDERS: Emergency Medicine; Emergency Provider Emergency Medicine; PCP Family Medicine
DX: N17.9 Acute kidney failure, unspecified (principal); N11.0 Nonobstructive reflux-associated chronic pyelonephritis; E11.9 Type 2 diabetes mellitus without complications
CPT/HCPCS: 71045; 71275; 74177; 80053; 81001; 82009; 82803; 83036; 83605; 83690; 83735; 84100; 84484; 85007; 85025; 85027; 85378; 87040; 87077; 87086; 87088; 87154; 87186; 93005; 96361; 96365; 96375; 99291; J0696; J2405; J7120; Q9967

== ENCOUNTER 2024-11-17 16:13 | Outpatient (CLI) | payer OTHER, SELFPAY ==
--- NOTE | 2024-11-17 16:16 | XR_ITS ---
PROCEDURE INFORMATION: Exam: XR Right Foot Complete; Alignment Exam date and time: 11/17/2024 4:18 PM Age: 49 years old Clinical indication: Other: Ulcer on right foot; Additional info: Ulcer of right foot TECHNIQUE: Imaging protocol: Radiologic exam of the right foot. Views: 3 or more views. COMPARISON: No relevant prior studies available. FINDINGS: Bones/joints: See Soft tissues finding. Soft tissues: Mild soft tissue edema. No subcutaneous air or evidence of osteomyelitis. IMPRESSION: Mild soft tissue edema. No subcutaneous air or evidence of osteomyelitis.
--- NOTE | 2024-11-17 16:16 | XR_ITS ---
PROCEDURE INFORMATION: Exam: XR Left Foot Complete; Alignment Exam date and time: 11/17/2024 4:18 PM Age: 49 years old Clinical indication: Ulcer on foot unable to get rid of it since May 2024; Additional info: Diabetic ulcer of left foot TECHNIQUE: Imaging protocol: Radiologic exam of the left foot. Views: 3 or more views. COMPARISON: No relevant prior studies available. FINDINGS: Bones/joints: No bony changes noted. Soft tissues: Mild soft tissue edema. No soft tissue air identified. IMPRESSION: Mild soft tissue edema. No soft tissue air identified. No bony changes noted.
--- OUTSIDE RECORDS SUMMARY | 2024-11-17 16:16 | XMS_ITS | Clinical Summary ---
Author Organization [facility] Address [address] [place] [address] Care Team Providers Care Brakeshoe Repairer Name Role Phone Gurvinder Lang MD Primary Care Provider [phone] Social History Tobacco Use Types Packs/Day Years Used Date Smoking Tobacco: Never Assessed Abuse Screen Answer Date Recorded Unsafe at Home or Work/School Not on file Feels Threatened by Someone? Not on file Does Anyone Keep You from Co ntacting Others or Doint Things Outside the Home? Not on file 02/06/2023 Physical Sign of Abuse Present Not on file 1 Housing Stability Answer Date Recorded Current Living Arrangements Not on file 01/25 Potentially Unsafe Housing Conditions Not on bassam e 02/06/2023 Family and Community Support Answer Tayo e Recorded Help with Day-to-Day Activities Not on file 02/06/2023 Lonely or Isolated Not on file 02/06/2023 Employment Answer Date Recorded Do you want help finding or keeping work or a [place] b? Not on file 02/06/2023 Disabilities Answer Date Recorded Concentrating, Remembering, or Making Decisions Difficulty Not on file 02/06/2023 Doing Errands Independently Difficulty Not on fi le 02/06/2023 Education Answer Date Recorded Help with school or training? Not on file Preferred Language Not on file 02/06/2023 Comments Unknown Sex and Gender Information Value Date Recorded Sex Assigned at Not on file Legal Sex Female 11:44 AM EDT Gender Identity Not on file Sexual Orientation Not on file Plan of Treatment Health Maintenance Due Date Last Done Comments ANNUAL PHYSICAL 1976 Annual Gynecologic Pelvic an d Breast Exam 1976 HEPATITIS C SCREENING 1976 TDAP/TD VACCINES (1 - Tdap) 01/18/1995 MAMMOGRAM 2016 COLOGUARD 01/18/2021 COLON CANCER SCREENING 5 YEA R SIGMOIDOSCOPY 01/18/2021 COLONOSCOPY 01/18/2021 COLORECTAL CANCER SCREENING 01/18/2021 CT COLONOGRAPHY 01/18/2021 FECAL OCCULT BLOOD TEST 01/18/2021 FIT Testing (1 year) 01/18/2021 COVID-19 Vaccine (1 - 2023-2 5 season) 2023 INFLUENZA VACCINE 01/25/2025 03/01/2020 Pneumococcal Vaccine 0-49 Aged Out No longer eligible based on patient's age to complete this topic Insurance [employer] Care Teams Brakeshoe Repairer Relationship Specialty Start Date End Date Gurvinder Lang MD [address] [facility] [address] [place] [address] PCP - General Family Medicine 11/03/22
--- OUTSIDE RECORDS SUMMARY | 2024-11-17 16:16 | XMS_ITS | Encounter Summary ---
Author Organization Healthcare Address [address] [place] [address] Care Team Providers Care Honing Machine Set Up Operator Name Role Phone Unavailable Primary Care Provider Unavailabl e Encounter Details Date Type Department Care Team (Late st Contact Info) Description 10/21/2024 Orders Only External Location [address] [place] [address] Kirit Wan MD [address] [place] [facility] [address] [place] [address] Social History Tobacco Use Types Packs/Day Years Used Date Smoking Tobacco: Never Assessed Comments Unknown Sex and Gender Information Value Date Recorded Sex Assigned at Not on file Legal Sex Female 8:39 PM EDT Gender Identity Not on file Sexual Orientation Not on file documented as of this encounter Plan of Treatment Not on file documented as of this encounter Procedures Procedure Name Priority Date/Time Associated Diagnosis Comments CT OUTSIDE IMAGES 10/21/2024 12:45 AM EDT documented in this encounter Results * CT OUTSIDE IMAGES (10/21/2024 12:45 AM EDT) Anatomical Region Laterality Modality Computed Tomogra phy 10/21/2024 12:4 5 AM EDT Kirit Wan MD IMG CT PROCEDURES Final Result documented in this encounter Visit Diagnoses Not on filedocumented in this encounter
--- OUTSIDE RECORDS SUMMARY | 2024-11-17 16:16 | XMS_ITS | Encounter Summary ---
Author Organization [facility] Address [address] [place] [address] Care Team Providers Care Paper Hanger Name Role Phone Unavailable Primary Care Provider Unavailabl e Encounter Details Date Type Department Care Team (Late st Contact Info) Description 10/20/2024 Orders Only External Location [address] [place] [address] Mayte Davis, [address] [place] [address] Social History Tobacco Use Types Packs/Day Years [...] Procedure Name Priority Date/Time Associated Diagnosis Comments XR OUTSIDE IMAGES 10/20/2024 11:08 PM EDT documented in this encounter Results * XR OUTSIDE IMAGES (10/20/2024 11:08 PM EDT) Anatomical Region Laterality Modality Radiographic Jerilyn ging 10/20/2024 11:0 8 PM EDT Mayte DAN XR PROCEDURES Final Result documented in this encounter Visit Diagnoses Not on filedocumented in this encounter
--- OUTSIDE RECORDS SUMMARY | 2024-11-17 16:16 | XMS_ITS | Clinical Summary ---
Author Organization [facility] Address [address] [place] [address] Care Team Providers Care Helper Coordinator Name Role Phone Unavailable Primary Care Provider Unavailabl e Encounters Date Type Department Care Team Description 10/21/2024 Orders Only External Location [address] [place] [address] Kirit Wan MD 10/21/2024 Orders Only External Location [address] [place] [address] Kirit Wan MD 10/20/2024 Orders Only External Location [address] [place] [address] Mayte Davis, DO from Last 3 Months Social History Tobacco Use Types Packs/Day Years Used Date Smoking Tobacco: Never Assessed Comments Unknown Sex and Gender Information Value Date Recorded Sex Assigned at Not on file Legal Sex Female 8:39 PM EDT Gender Identity Not on file Sexual Orientation Not on file Plan of Treatment Not on file Procedures Procedure Name Priority Date/Time Associated Diagnosis Comments CT OUTSIDE IMAGES 10/21/2024 12:[address] OUTSIDE IMAGES 10/21/2024 12:45 AM EDT XR OUTSIDE IMAGES 10/20/2024 11:08 PM EDT from Last 3 Months Results * CT OUTSIDE IMAGES (10/21/2024 12:45 AM EDT) Only the most recent of2 resultswithin the time period is included. Anatomical Region Laterality Modality Computed Tomogra phy 10/21/2024 12:4 5 AM EDT us Kirit Wan MD IMG CT PROCEDURES Final Result * XR OUTSIDE IMAGES (10/20/2024 11:08 PM EDT) Anatomical Region Laterality Modality Radiographic Jerilyn ging 10/20/2024 11:0 8 PM EDT Mayte Davis DO IMG XR PROCEDURES Final Result from Last 3 Months Insurance [employer]
--- OUTSIDE RECORDS SUMMARY | 2024-11-17 16:16 | XMS_ITS | Encounter Summary ---
Author Organization [facility] Address [address] [place] [address] Care Team Providers Care Ordnance Corps Officer Name Role Phone Unavailable Primary Care Provider Unavailabl e Encounter Details Date Type Department Care Team (Late st Contact Info) Description 10/21/2024 Orders Only External Location [address] [place] [address] Kirit Wan MD [address] [place] [facility] [address] [place] [address] Social History Tobacco Use Types Packs/Day Years [...]
[2024-11-17 17:15] LABS: Hematocrit 32.9 % (37.0-47.0); Hemoglobin 10.4 g/dL (12.2-16.2); Immature Granulocytes % 0.7 %; Mean Corpuscular HGB Conc 31.6 g/dL (31.8-35.4); Mean Corpuscular Hemoglobin 29.6 pg (27.0-31.2); Mean Corpuscular Volume 93.7 fl (81-99); Nucleated Red Blood Cells % 0 %; Platelet Count 276 K/mm3 (142-424); Red Blood Count 3.51 M/mm3 (4.20-5.40); Red Cell Distribution Width-SD 52.7 fL; White Blood Count 9.4 K/mm3 (4.8-10.8)
[2024-11-17 19:34] LABS: Albumin Level 4.7 g/dl (3.5-5.0); Chloride 101 mmol/L (98-107); Potassium 4.5 mmoL/L (3.5-5.1); Sodium 137 mmol/L (136-145)
[2024-11-17 19:36] LABS: Blood Urea Nitrogen 37 mg/dl (7-17); Creatinine,Serum 1.40 mg/dl (0.52-1.04); Estimated Glomerular Filt Rate 40 ml/min (>60); GFR (African American) 49 ML/MIN (>60)
[2024-11-17 19:37] LABS: Alanine Aminotransferase 15 U/L (12-78); Albumin/Globulin Ratio 1.4 (1.1-1.8); Alkaline Phosphatase 77 U/L (38-126); Anion Gap 14.5 mEq/L (5-15); Aspartate Amino Transferase 20 U/L (14-36); Calcium 9.6 mg/dl (8.4-10.2); Carbon Dioxide 26 mmol/L (22.0-30.0); Globulin 3.3 g/dL (1.3-3.2); Glucose 121 mg/dl (74-100); Total Protein,Serum 8.0 g/dl (6.3-8.2)
[2024-11-17 19:38] LABS: Bilirubin,Total < 0.1 mg/dl (0.2-1.3)
[2024-11-17 19:43] LABS: C-Reactive Protein 9.5 mg/L (0-4)
[2024-11-17 19:45] LABS: Hemoglobin A1C 7.6 % (4.0-6.0)
== END 2024-11-17 23:59 | disposition home or self-care (01) ==
LOC: LAB 16:13
PROVIDERS: PCP Family Medicine; Visit Provider Nurse Practitioner
DX: S91.309A Unspecified open wound, unspecified foot, initial encounter (principal); E08.621 Diabetes mellitus due to underlying condition with foot ulcer; L97.519 Non-pressure chronic ulcer of other part of right foot with unspecified severity; L97.529 Non-pressure chronic ulcer of other part of left foot with unspecified severity
CPT/HCPCS: 36415; 73630; 80053; 83036; 85025; 85651; 86140; 87070; 87077; 87205

== ENCOUNTER 2024-12-28 14:26 | Outpatient (CLI) | payer OTHER, SELFPAY ==
--- OUTSIDE RECORDS SUMMARY | 2024-11-04 11:20 | XMS_ITS ---
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 Name Role Phone BEBETO CRONIN MD Primary Care Provider [place] Mary Newell Unavailable [phone] REASON FOR VISIT Hospital follow-up Medications Medication SIG (Take, Route, Frequency, Duration) Notes Start Date End Date Status Losartan Potassium 25 MG 1 tablet Orally Once a day; Duration: 90 days 11/04/2024 Active Fluticasone Propionate 50 MCG/ACT 1 spray in each nostril Nasally Twice a day 11/03/2024 Active Carvedilol 12.5 MG 1 tablet with food Orally Twice a day 11/03/2024 Active Dapagliflozin Propanediol 10 MG 1 tablet Orally Once a day 11/03/2024 Active Glimepiride 4 MG 1 tablet with breakf ast or the first main meal of the day Orally Once a day 11/03/2024 Active Levothyroxine Sodium 25 MCG 1 tablet in the morning on an empty stomach Orally Once a day 11/03/2024 Active Simvastatin 20 MG 1 tablet in the even ing Orally Once a day 11/03/2024 Active Insulin Glargine 100 UNIT/ML as directed Subcutaneous 55 unit subq qpm 11/03/2024 Active metFORMIN HCl 500 MG 1 tablet with a mike l Orally twice a day 11/03/2024 Active Budesonide-Formoterol Fumarate 160-4.5 MCG/ACT as directed Inhalation twice a day 2 Puff 11/03/2024 Active Fenofibrate 48 MG 1 tablet Orally Once a day 11/03/2024 Active Januvia 50 MG as directed Orally 11/03/2024 Active Chlorthalidone 12.5 MG 1 tablet in the m orning with food Orally daily; Duration: 90 days 11/04/2024 10/30/2025 Active Problems Problem Type SNOMED Code ICD Code Onset Dates Problem Status W/U Status Risk Notes Problem Information temporarily unavailable Type II diabetes mellitus (E11.9) Active confirmed Problem Information temporarily unavailable Acute injury of kidney (N17.9) Active confirmed Problem Information temporarily unavailable CKD stage G3a/A2, GFR 45-59 and albumin creatinine ratio 30-299 mg/g (N18.31) Active confirmed Problem Information temporarily unavailable Acidosis (E87.20) Active confirmed Problem Information temporarily unavailable Proteinuria (R80.9) Active confirmed Vital Signs Temperature 97.7 degrees Fahrenheit 11/05/19 25 Blood pressure systolic 163 mm Hg 11/05/19 25 Blood pressure diastolic 94 mm Hg 025 Heart Rate 99 /min 11/04/2024 Respiratory Rate 20 /min 11/04/2024 Height 65 in 11/04/2024 Weight 233.8 lbs 11/04/2024 BMI 38.9 kg/m2 11/04/2024 Oximetry 95 % 11/04/2024 Height-cm 165.1 cm 11/04/2024 Weight-kg 106.05 kg 11/04/2024 Encounters Encounter Location Date Provider Diagnosis [facility] [address] [place] [address] 11/04/2024 Mary Gómez Benign essential HTN I10 ; CKD stage G3a/A2, GFR 45-59 and albumin creatinine ratio 30-299 mg/g N18.31 ; Type II diabetes mellitus E11.9 ; Proteinuria R80.9 ; Anemia D64.9 and Vitamin D deficiency E55.9 Assessments Encounter Date Diagnosis (ICD Code) Assessment Notes Treatment Notes Treatment Clinical Notes Section Notes 11/04/2024 Benign essential HTN (ICD-10 - I10) ========= Impression: Apparent history of pyelonephritis, about 20 years of poorly controlled diabetes and hypertension, with morbid obesity. Large proteinuria, negative for paraproteinemia and pararoteinuria, blood pressures have been too low resulting in decreased renal perfusion, wound on left heel healing. I spoke with patient and her about the lifestyle changes and monitoring necessary to inhibit the progression of her diabetic nephropathy, which is progressive in nature. I identified adequate fluid intake, appropriate glucose control, adequate blood pressure control reduction in dietary sodium and steady weight loss as the foci we on which we would need to concentrate to prevent advancement of the disease. They both understood. ========= PLAN: 1. Discontinue losartan HCTZ 50/12.5 2. Start losartan 25 mg once a day 3. Start chlorthalidone 12.5 mg once a day 4. Drink at least 60 ounces of noncaffeinated fluids daily 5. Check BP s regularly, target avg BP is 120-135/60-80, call if persistently out of range 6. Seek forensics team director for tight control of diabetes 7. Reduce dietary sodium by less eating out and processed foods, check processed foods sodium level RETURN to clinic in 4 months, call or visit sooner as needed . Dictated by Hussein Boo PA-C for Mary Gómez M.D. [facility] 11/04/2024 CKD stage G3a/A2, GFR 45-59 and albumin creatinine ratio 30-299 mg/g (ICD-10 - N18.31) ========= Impression: Apparent history of pyelonephritis, about 20 years of poorly controlled diabetes and hypertension, with morbid obesity. Large proteinuria, negative for paraproteinemia and pararoteinuria, blood pressures have been too low resulting in decreased renal perfusion, wound on left heel healing. I spoke with patient and her about the lifestyle changes and monitoring necessary to inhibit the progression of her diabetic nephropathy, which is progressive in nature. I identified adequate fluid intake, appropriate glucose control, adequate blood pressure control reduction in dietary sodium and steady weight loss as the foci we on which we would need to concentrate to prevent advancement of the disease. They both understood. ========= PLAN: 1. Discontinue losartan HCTZ 50/12.5 2. Start losartan 25 mg once a day 3. Start chlorthalidone 12.5 mg once a day 4. Drink at least 60 ounces of noncaffeinated fluids daily 5. Check BP s regularly, target avg BP is 120-135/60-80, call if persistently out of range 6. Seek forensics team director for tight control of diabetes 7. Reduce dietary sodium by less eating out and processed foods, check processed foods sodium level RETURN to clinic in 4 months, call or visit sooner as needed . Dictated by Hussein Boo PA-C for Mary Gómez M.D. [facility] 11/04/2024 Type II diabetes mellitus (ICD-10 - E11.9) ========= Impression: Apparent history of pyelonephritis, about 20 years of poorly controlled diabetes and hypertension, with morbid obesity. Large proteinuria, negative for paraproteinemia and pararoteinuria, blood pressures have been too low resulting in decreased renal perfusion, wound on left heel healing. I spoke with patient and her about the lifestyle changes and monitoring necessary to inhibit the progression of her diabetic nephropathy, which is progressive in nature. I identified adequate fluid intake, appropriate glucose control, adequate blood pressure control reduction in dietary sodium and steady weight loss as the foci we on which we would need to concentrate to prevent advancement of the disease. They both understood. ========= PLAN: 1. Discontinue losartan HCTZ 50/12.5 2. Start losartan 25 mg once a day 3. Start chlorthalidone 12.5 mg once a day 4. Drink at least 60 ounces of noncaffeinated fluids daily 5. Check BP s regularly, target avg BP is 120-135/60-80, call if persistently out of range 6. Seek forensics team director for tight control of diabetes 7. Reduce dietary sodium by less eating out and processed foods, check processed foods sodium level RETURN to clinic in 4 months, call or visit sooner as needed . Dictated by Hussein Boo PA-C for Mary Gómez M.D. [facility] 11/04/2024 Proteinuria (ICD-10 - R80.9) ========= Impression: Apparent history of pyelonephritis, about 20 years of poorly controlled diabetes and hypertension, with morbid obesity. Large proteinuria, negative for paraproteinemia and pararoteinuria, blood pressures have been too low resulting in decreased renal perfusion, wound on left heel healing. I spoke with patient and her about the lifestyle changes and monitoring necessary to inhibit the progression of her diabetic nephropathy, which is progressive in nature. I identified adequate fluid intake, appropriate glucose control, adequate blood pressure control reduction in dietary sodium and steady weight loss as the foci we on which we would need to concentrate to prevent advancement of the disease. They both understood. ========= PLAN: 1. Discontinue losartan HCTZ 50/12.5 2. Start losartan 25 mg once a day 3. Start chlorthalidone 12.5 mg once a day 4. Drink at least 60 ounces of noncaffeinated fluids daily 5. Check BP s regularly, target avg BP is 120-135/60-80, call if persistently out of range 6. Seek forensics team director for tight control of diabetes 7. Reduce dietary sodium by less eating out and processed foods, check processed foods sodium level RETURN to clinic in 4 months, call or visit sooner as needed . Dictated by Hussein Boo PA-C for Mary Gómez M.D. [facility] 11/04/2024 Anemia (ICD-10 - D64.9) ========= Impression: Apparent history of pyelonephritis, about 20 years of poorly controlled diabetes and hypertension, with morbid obesity. Large proteinuria, negative for paraproteinemia and pararoteinuria, blood pressures have been too low resulting in decreased renal perfusion, wound on left heel healing. I spoke with patient and her about the lifestyle changes and monitoring necessary to inhibit the progression of her diabetic nephropathy, which is progressive in nature. I identified adequate fluid intake, appropriate glucose control, adequate blood pressure control reduction in dietary sodium and steady weight loss as the foci we on which we would need to concentrate to prevent advancement of the disease. They both understood. ========= PLAN: 1. Discontinue losartan HCTZ 50/12.5 2. Start losartan 25 mg once a day 3. Start chlorthalidone 12.5 mg once a day 4. Drink at least 60 ounces of noncaffeinated fluids daily 5. Check BP s regularly, target avg BP is 120-135/60-80, call if persistently out of range 6. Seek forensics team director for tight control of diabetes 7. Reduce dietary sodium by less eating out and processed foods, check processed foods sodium level RETURN to clinic in 4 months, call or visit sooner as needed . Dictated by Hussein Boo PA-C for Mary Gómez M.D. [facility] 11/04/2024 Vitamin D deficiency (ICD-10 - E55.9) ========= Impression: Apparent history of pyelonephritis, about 20 years of poorly controlled diabetes and hypertension, with morbid obesity. Large proteinuria, negative for paraproteinemia and pararoteinuria, blood pressures have been too low resulting in decreased renal perfusion, wound on left heel healing. I spoke with patient and her about the lifestyle changes and monitoring necessary to inhibit the progression of her diabetic nephropathy, which is progressive in nature. I identified adequate fluid intake, appropriate glucose control, adequate blood pressure control reduction in dietary sodium and steady weight loss as the foci we on which we would need to concentrate to prevent advancement of the disease. They both understood. ========= PLAN: 1. Discontinue losartan HCTZ 50/12.5 2. Start losartan 25 mg once a day 3. Start chlorthalidone 12.5 mg once a day 4. Drink at least 60 ounces of noncaffeinated fluids daily 5. Check BP s regularly, target avg BP is 120-135/60-80, call if persistently out of range 6. Seek forensics team director for tight control of diabetes 7. Reduce dietary sodium by less eating out and processed foods, check processed foods sodium level RETURN to clinic in 4 months, call or visit sooner as needed . Dictated by Hussein Boo PA-C for Mary Gómez M.D. [facility] 11/04/2024 Other ========= Impression: Apparent history of pyelonephritis, about 20 years of poorly controlled diabetes and hypertension, with morbid obesity. Large proteinuria, negative for paraproteinemia and pararoteinuria, blood pressures have been too low resulting in decreased renal perfusion, wound on left heel healing. I spoke with patient and her about the lifestyle changes and monitoring necessary to inhibit the progression of her diabetic nephropathy, which is progressive in nature. I identified adequate fluid intake, appropriate glucose control, adequate blood pressure control reduction in dietary sodium and steady weight loss as the foci we on which we would need to concentrate to prevent advancement of the disease. They both understood. ========= PLAN: 1. Discontinue losartan HCTZ 50/12.5 2. Start losartan 25 mg once a day 3. Start chlorthalidone 12.5 mg once a day 4. Drink at least 60 ounces of noncaffeinated fluids daily 5. Check BP s regularly, target avg BP is 120-135/60-80, call if persistently out of range 6. Seek forensics team director for tight control of diabetes 7. Reduce dietary sodium by less eating out and processed foods, check processed foods sodium level RETURN to clinic in 4 months, call or visit sooner as needed . Dictated by Hussein Boo PA-C for Mary Gómez M.D. [facility] Plan Of Treatment Medication Medication Name Sig Start Date Stop Date Notes Losartan Potassium-HCTZ 100- 25 MG 1 tablet Orally Once a day 11/03/2024 Losartan Potassium 25 MG 1 tablet Orally Once a day; Duration: 90 days 11/04/2024 Chlorthalidone 12.5 MG 1 tablet in the m orning with food Orally daily; Duration: 90 days 11/04/2024 10/30/2025 Pending Test Test Name Order Date Hemoglobin A1c 11/04/2024 Urinalysis, Complete 11/04/2024 Hemoglobin 11/04/2024 PTH, Intact 11/04/2024 Vitamin D, 25-Hydroxy 11/04/2024 Microalb/Creat Ratio, Randm Ur Renal Panel (10) 11/04/2024 Next Appt Details Follow Up: 4 Months, Reason: Provider Name:Mary Alvarado y, 03/07/2025 02:00:00 PM, [address] [place] [address], [place] [address], [place], [address], Progress Notes * SUHA LAURENTOB:[birth year] (49 yo F)Acc No.[id number]:11/04/2024 progress notes Patient: SUHA BALDERAS ALBINA Provider: Sinan Gómez MD :1975 A ge:49 Y S ex:Female Date:11/04/2024 Address:[address] [place] [address] Pcp:BEBETO CRONIN MD Subjective: * Chief Complaints: * H ospital follow-up * HPI: H istory of the present illness: INITIAL:Patient was seen at [facility] in consultation due to TAMARA due to left acute pyelonephritis and volume depletion due to vomiting and diarrhea, poor nutrition fluid intake, and continued losartan/HCTZ 50/25. She was SOA, hypotensive, negative for PE, acute anemia of 8.5 g. I nitial creatinine was 3.6, GFR was 13 mL/min. PMH:DM type II and HTN about 19 years, asthma, diabetic retinopathy, hypothyroidism, hyperlipidemia, obesity and (imaging suggestive of prior pyelonephritis bilaterally). I nterim History: Since discharge she has been feeling fairly well, getting stronger and more back to normal daily, checking blood pressures which have been low, 90-115/60-70, fluid intake of about 60 ounces per day. Appetite is normal, she is wearing a foot boot to protect ulceration of the left foot, which is healing appropriately but slowly per her report. She has discontinued taking ibuprofen, advises that A1c has been in the 7-8 range for several years, that she was unaware of any renal dysfunction prior to her hospitalization. P ertinent Data: 10/21/2024:Ultrasound renal bilateral:IMPRESSION: Findings that that suggest scarring areas of the parenchyma within both kidneys. Remainder of renal and bladder ultrasound is unremarkable. * ROS: 1 1 point ROS, pertinent positives listed in the HPI, otherwise negative. * Medical History: * Medications: T akingLosartan Potassium-HCTZ 100-25 MG Tablet 1 tablet Orally Once a day 0.5 tablet po dailySimvastatin 20 MG Tablet 1 tablet in the evening Orally Once a day Levothyroxine Sodium 25 MCG Tablet 1 tablet in the morning on an empty stomach Orally Once a day Insulin Glargine 100 UNIT/ML Solution as directed Subcutaneous 55 unit subq qpmGlimepiride 4 MG Tablet 1 tablet with breakfast or the first main meal of the day Orally Once a day Fluticasone Propionate 50 MCG/ACT Suspension 1 spray in each nostril Nasally Twice a day Dapagliflozin Propanediol 10 MG Tablet 1 tablet Orally Once a day Carvedilol 12.5 MG Tablet 1 tablet with food Orally Twice a day Budesonide-Formoterol Fumarate 160-4.5 MCG/ACT Aerosol as directed Inhalation twice a day 2 PuffmetFORMIN HCl 500 MG Tablet 1 tablet with a meal Orally twice a day Januvia 50 MG Tablet as directed Orally Fenofibrate 48 MG Tablet 1 tablet Orally Once a day Taking Losartan Potassium-HCTZ 100-25 MG Tablet 1 tablet Orally Once a day 0.5 tablet po dailyTaking Simvastatin 20 MG Tablet 1 tablet in the evening Orally Once a day Taking Levothyroxine Sodium 25 MCG Tablet 1 tablet in the morning on an empty stomach Orally Once a day Taking Insulin Glargine 100 UNIT/ML Solution as directed Subcutaneous 55 unit subq qpmTaking Glimepiride 4 MG Tablet 1 tablet with breakfast or the first main meal of the day Orally Once a day Taking Fluticasone Propionate 50 MCG/ACT Suspension 1 spray in each nostril Nasally Twice a day Taking Dapagliflozin Propanediol 10 MG Tablet 1 tablet Orally Once a day Taking Carvedilol 12.5 MG Tablet 1 tablet with food Orally Twice a day Taking Budesonide-Formoterol Fumarate 160- 4.5 MCG/ACT Aerosol as directed Inhalation twice a day 2 PuffTaking metFORMIN HCl 500 MG Tablet 1 tablet with a meal Orally twice a day Taking Januvia 50 MG Tablet as directed Orally Taking Fenofibrate 48 MG Tablet 1 tablet Orally Once a day DiscontinuedIbuprofen 800 MG Tablet 1 tablet with food or milk as needed Orally twice a day As needed, stop date 11/04/2024levoFLOXacin 750 MG Tablet 1 tablet Orally Once a day q48H, stop date 11/04/2024Discontinued Ibuprofen 800 MG Tablet 1 tablet with food or milk as needed Orally twice a day As needed, stop date 11/04/2024Discontinued levoFLOXacin 750 MG Tablet 1 tablet Orally Once a day q48H, stop date 11/04/2024 Objective: * Vitals: B P:163/94mm Hg, HR:99/min, RR:20/min, Temp:97.7F, Oxygen sat %:95%, Wt:233.8lbs, Wt-k.05 kg, Ht: 65 in, Ht-cm: 165.1 cm, BMI:38.9Index, Body Surface Area: 2.2. * Examination: P hysical Examination: General appearance: a lert, pleasant, obese, well-nourished, no acute distress, walking boot. Head: n ormocephalic, hair is full. Eyes: p upils equal, EOMI, sclera anicteric. Oral cavity: m ucosa moist, tongue is midline, good dentition. Neck / thyroid: n lucian is supple, t rachea midline, normal carotid pulse. Skin: w arm and dry, no rashes, good turgor. Heart: r egular rate and rhythm, no rubs or gallops, no JVD. Lungs: g ood air movement, no wheezes, rales or r honchi. Abdomen: s oft, nontender, non-distended. Extremities: T race lower extremity edema. Neurologic: n onfocal, cognitive function grossly normal.? Psych: a lert and oriented x 3, thought process is logical and goal directed. Assessment: * Assessment: 1. C KD stage G3a/A2, GFR 45-59 and albumin creatinine ratio 30-299 mg/g - N18.31 (Primary)? 2. B enign essential HTN - I10 3 . T ype II diabetes mellitus - E11.9 4 . P roteinuria - R80.9 5 . A nemia - D64.9 & #160; 6 . V itamin D deficiency - E55.9 = Impression: Apparent history of pyelonephritis, about 20 years of poorly controlled diabetes and hypertension, with morbid obesity. Large proteinuria, negative for paraproteinemia and pararoteinuria, blood pressures have been too low resulting in decreased renal perfusion, wound on left heel healing.? I spoke with patient and her about the lifestyle changes and monitoring necessary to inhibit the progression of her diabetic nephropathy, which is progressive in nature. I identified adequate fluid intake, appropriate glucose control, adequate blood pressure control reduction in dietary sodium and steady weight loss as the foci we on which we would need to concentrate to prevent advancement of the disease. They both understood. = PLAN: 1. Discontinue losartan HCTZ 50/12.5 2. Start losartan 25 mg once a day 3. Start chlorthalidone 12.5 mg once a day 4. Drink at least 60 ounces of noncaffeinated fluids daily 5. Check BP s regularly, target avg BP is 120-135/60-80, call if persistently out of range 6. Seek forensics team director for tight control of diabetes 7. Reduce dietary sodium by less eating out and processed foods, check processed foods sodium kaley brantley RETURN to clinic in 4 months, call or visit sooner as needed . Dictated by Hussein Boo PA-C for Mary óGmez M.D. [facility] Plan: * Treatment: 2. B enign essential HTN Stop Losartan Potassium-HCTZ Tablet, 100-25 MG, 1 tablet, Orally, Once a day 0.5 tablet po daily;?Start Losartan Potassium Tablet, 25 MG, 1 tablet, Orally, Once a day, 90 days, 90 Tablet, Refills 3; S tart Chlorthalidone Tablet, 12.5 MG, 1 tablet in the morning with food, Orally, daily, 90 days, 90 Tablet, Refills 3. 3. A nemia L AB: Urinalysis, Complete L AB: Hemoglobin 4. V itamin D deficiency L AB: Vitamin D, 25-Hydroxy * Procedure Codes: G 8752 MOST RECENT SYSTOLIC BP < 140MM [id number] MOST RECENT DIASTOLIC BP < 90MM HG * Follow Up: 4 Months Care Plan: * Problems: * Billing Information: * Visit Code: 71305 Office Visit, Est Pt., Level 4. * Procedure Codes: G8752 MOST RECENT SYSTOLIC BP < 140MM HG. G8754 MOST RECENT DIASTOLIC BP < 90MM HG. * Sign off status: Completed true * Provider: Sinan Gómez MD Date: 0 11/04/2024 Generated for Janae mendez/Prosper/Adriel on: 0 12/28/2024 01:11 PM EDT History and Physical Notes * HPI (History of Present Illness) Category Sub-Category Detail Notes Category Not es History of the present illness INITIAL: Patient was seen at [facility] in consultation due to TAMARA due to left acute pyelonephritis and volume depletion due to vomiting and diarrhea, poor nutrition fluid intake, and continued losartan/HCTZ 50/25. She was SOA, hypotensive, negative for PE, acute anemia of 8.5 g. Initial creatinine was 3.6, GFR was 13 mL/min. PMH: DM type II and HTN about 19 years, asthma, diabetic retinopathy, hypothyroidism, hyperlipidemia, obesity and (imaging suggestive of prior pyelonephritis bilaterally) Examination Category Sub-Category Detail Notes Category Not es Physical Examination General appearance: alert, pleasant, obese, well-nourished, no acute distress, walking boot Head: normocephalic, hair is full Eyes: pupils equal, EOMI, sclera anicteric Ears: Nose: Throat: Neck / thyroid: neck is supple, trac hea midline, normal carotid pulse Heart: regular rate and rhy thm, no rubs or gallops, no JVD Chest: Lungs: good air movement, n o wheezes, rales or rhonchi Abdomen: soft, nontender, non -distended Neurologic: nonfocal, cognitive function grossly normal Skin: warm and dry, no alex hes, good turgor Extremities: Trace lower extremit y edema Peripheral pulses: Back: Breasts: Musculoskeletal: Male genitourinary: Lymph nodes: Rectal: Psych: alert and oriented x 3, thought process is logical and goal directed Female genitourinary: Oral cavity: mucosa moist, tongue is midline, good dentition
--- NOTE | 2024-12-28 14:29 | XR_ITS ---
FINAL REPORT CLINICAL HISTORY: diabetic foot ulcer, non healing wound FINDINGS: LEFT FOOT Three views were obtained. There is no fracture or dislocation. The joint spaces appear normal. There is soft tissue swelling over the distal fifth metatarsal. There is no evidence of bony erosion or periosteal reaction. Large os trigonum is identified. IMPRESSION: Soft tissue swelling over the distal fifth metatarsal. Reviewed, Interpreted and Dictated by Zac Meier MD Transcribed by Carmen Glover Authenticated and [facility]
--- OUTSIDE RECORDS SUMMARY | 2024-12-28 14:42 | XMS_ITS | Clinical Summary ---
Author Organization [facility] Address [address] [place] [address] Care Team Providers Care Laborer Pole Crew Name Role Phone Gurvinder Lang MD Primary Care Provider [phone] Social History Tobacco Use Types Packs/Day Years [...] this topic Insurance [employer] Care Teams Laborer Pole Crew Relationship Specialty Start Date End Date Gurvinder Lang MD [address] [facility] [address] [place] [address] PCP - General Family Medicine 11/03/22
--- OUTSIDE RECORDS SUMMARY | 2024-12-28 14:42 | XMS_ITS | Clinical Summary ---
Author Organization [facility] Address [address] [place] [address] Care Team Providers Care Java Mobile Developer Name Role Phone Unavailable Primary Care Provider Unavailabl e Encounters Date Type Department Care Team Description 10/21/2024 Orders Only External Location [address] [place] [address] Kirit Wan MD 10/21/2024 Orders Only External Location [address] [place] [address] Kirit Wan MD 10/20/2024 Orders Only External Location [address] [place] [address] Mayte Davis, DO from Last [...]
--- OUTSIDE RECORDS SUMMARY | 2024-12-28 14:42 | XMS_ITS | Patient Health Record ---
Author Organization [facility] Address [address] [place] [address] [address] Care Team Providers Care Quality Improvement Analyst Name Role Phone BEBETO CRONIN MD Primary Care Provider Amador Mary Newell Unavailable [phone] Reason For Referral No Information Medications Medication SIG (Take, Route, Frequency, Duration) Notes Start Date End Date Status Budesonide-Formoterol Fumarate 160-4.5 MCG/ACT as directed Inhalation twice a day 2 Puff 11/03/2024 Active Fluticasone Propionate 50 MCG/ACT 1 spray in each nostril Nasally Twice a day 11/03/2024 Active Glimepiride 4 MG 1 tablet with breakf ast or the first main meal of the day Orally Once a day 11/03/2024 Active Carvedilol 12.5 MG 1 tablet with food Orally Twice a day 11/03/2024 Active Dapagliflozin Propanediol 10 MG 1 tablet Orally Once a day 11/03/2024 Active Levothyroxine Sodium 25 MCG 1 tablet in the morning on an empty stomach Orally Once a day 11/03/2024 Active Fenofibrate 48 MG 1 tablet Orally Once a day 11/03/2024 Active Simvastatin 20 MG 1 tablet in the even ing Orally Once a day 11/03/2024 Active Januvia 50 MG as directed Orally 11/03/2024 Active Insulin Glargine 100 UNIT/ML as directed Subcutaneous 55 unit subq qpm 11/03/2024 Active Chlorthalidone 12.5 MG 1 tablet in the m orning with food Orally daily; Duration: 90 days 11/04/2024 10/30/2025 Active Losartan Potassium 25 MG 1 tablet Orally Once a day; Duration: 90 days 11/04/2024 Active metFORMIN HCl 500 MG 1 tablet with a mike l Orally twice a day 11/03/2024 Active Problems Problem Type SNOMED Code ICD Code Onset Dates Problem Status W/U Status Risk Notes Problem Information temporarily unavailable Vitamin D deficiency (E55.9) Active confirmed Problem Information temporarily unavailable Proteinuria (R80.9) Active confirmed Problem Information temporarily unavailable Anemia (D64.9) Active confirmed Problem Information temporarily unavailable Acute injury of kidney (N17.9) Active confirmed Problem Information temporarily unavailable Benign essential HTN (I10) Active confirmed Problem Information temporarily unavailable Type II diabetes mellitus (E11.9) Active confirmed Problem Information temporarily unavailable CKD stage G3a/A2, GFR 45-59 and albumin creatinine ratio 30-299 mg/g (N18.31) Active confirmed Problem Information temporarily unavailable Acute anemia (D64.9) Active confirmed Problem Information temporarily unavailable Acidosis (E87.20) Active confirmed Vital Signs Heart Rate 99 /min 11/04/2024 Temperature 97.7 degrees Fahrenheit 11/04/2024 Respiratory Rate 20 /min 11/04/2024 Height-cm 165.1 cm 11/04/2024 Oximetry 95 % 11/04/2024 Blood pressure diastolic 94 mm Hg 11/04/2024 Weight-kg 106.05 kg 11/04/2024 Height 65 in 11/04/2024 Blood pressure systolic 163 mm Hg 11/04/2024 Weight 233.8 lbs 11/04/2024 BMI 38.9 kg/m2 11/04/2024 Encounters Encounter Location Date Provider Diagnosis [facility] [address] [facility] [place] [address] 11/04/2024 Mary Gómez Benign essential HTN I10 ; CKD stage G3a/A2, GFR 45-59 and albumin creatinine ratio 30-299 mg/g N18.31 ; Type II diabetes mellitus E11.9 ; Proteinuria R80.9 ; Anemia D64.9 and Vitamin D deficiency E55.9 [facility] [address] [facility] [place] [address] 10/27/2024 Mary Gómez Acute injury of kidney N17.9 ; Acidosis E87.20 ; Benign essential HTN I10 and Acute anemia D64.9 [facility] [address] [place] [address] 11/22/2024 Mary Gómez Benign essential HTN I10 [facility] [address] [place] [address] 11/22/2024 Mary Gómez Assessments Encounter Date Diagnosis (ICD Code) Assessment Notes Treatment Notes Treatment Clinical Notes Section Notes 10/27/2024 Acute injury of kidney (ICD-10 - N17.9) 11/04/2024 Benign essential HTN (ICD-10 - I10) [...] if persistently out of range 6. Seek air turning machine feeder for tight control of diabetes 7. Reduce dietary sodium by less eating out and processed foods, check processed foods sodium level RETURN to clinic in 4 months, call or visit sooner as needed . Dictated by Hussein Boo PA-C for Mary Gómez M.D. [facility] 11/04/2024 CKD stage G3a/A2, GFR [...] if persistently out of range 6. Seek air turning machine feeder for tight control of diabetes 7. Reduce dietary sodium by less eating out and processed foods, check processed foods sodium level RETURN to clinic in 4 months, call or visit sooner as needed . Dictated by Hussein Boo PA-C for Mary Gómez M.D. [facility] 11/22/2024 Benign essential HTN (ICD-10 - I10) 11/04/2024 Type II diabetes mellitus (ICD-10 - [...] if persistently out of range 6. Seek air turning machine feeder for tight control of diabetes 7. Reduce dietary sodium by less eating out and processed foods, check processed foods sodium level RETURN to clinic in 4 months, call or visit sooner as needed . Dictated by Hussein Boo PA-C for Mary Gómez M.D. [facility] 10/27/2024 Acidosis (ICD-10 - E87.20) 10/27/2024 Benign essential HTN (ICD-10 - I10) 11/04/2024 Proteinuria (ICD-10 - R80.9) ========= Impression: [...] if persistently out of range 6. Seek air turning machine feeder for tight control of diabetes 7. Reduce dietary sodium by less eating out and processed foods, check processed foods sodium level RETURN to clinic in 4 months, call or visit sooner as needed . Dictated by Hussein Boo PA-C for Mary Gómez M.D. [facility] 10/27/2024 Acute anemia (ICD-10 - D64.9) 11/04/2024 Anemia (ICD-10 - D64.9) ========= Impression: [...] if persistently out of range 6. Seek air turning machine feeder for tight control of diabetes 7. Reduce dietary sodium by less eating out and processed foods, check processed foods sodium level RETURN to clinic in 4 months, call or visit sooner as needed . Dictated by Hussein Boo PA-C for Mary Gómez M.D. [facility] 11/04/2024 Vitamin D deficiency (ICD-10 - E55.9) [...] if persistently out of range 6. Seek air turning machine feeder for tight control of diabetes 7. Reduce dietary sodium by less eating out and processed foods, check processed foods sodium level RETURN to clinic in 4 months, call or visit sooner as needed . Dictated by Hussein Boo PA-C for Mary Gómez M.D. [facility] 11/04/2024 Other ========= Impression: Apparent [...] if persistently out of range 6. Seek air turning machine feeder for tight control of diabetes 7. Reduce dietary sodium by less eating out and processed foods, check processed foods sodium level RETURN to clinic in 4 months, call or visit sooner as needed . Dictated by Hussein Boo PA-C for Mary Gómez M.D. [facility] Plan Of Treatment Pending Test Test Name Order Date Hemoglobin A1c 11/04/2024 Urinalysis, Complete 11/04/2024 CBC With Differential/Platelet Hemoglobin 11/04/2024 PTH, Intact 11/04/2024 Vitamin D, 25-Hydroxy 10/27/2024 Vitamin D, 25-Hydroxy 11/04/2024 Microalb/Creat Ratio, Rand Ur Microalb/Creat Ratio, Rand Ur Renal Panel (10) 11/04/2024 Renal Panel (10) 10/27/2024 Urinalysis 10/27/2024 Next Appt Details Provider Name:Mary islas, 03/07/2025 02:00:00 PM, [address], [facility] [address], [place], [address], Insurance Providers Payer Name Payer Address Payer Phone Subscriber Number Group Number Insured Name Patient Relationship to Insured Coverage Start Date Coverage End Date [employer] [address] [place] [address] [id number] SUHA LAURENT Self - patient is the insured
[2024-12-28 15:11] LABS: Hematocrit 36.9 % (37.0-47.0); Hemoglobin 12.1 g/dL (12.2-16.2); Immature Granulocytes % 0.3 %; Mean Corpuscular HGB Conc 32.8 g/dL (31.8-35.4); Mean Corpuscular Hemoglobin 30.5 pg (27.0-31.2); Mean Corpuscular Volume 92.9 fl (81-99); Nucleated Red Blood Cells % 0 %; Platelet Count 271 K/mm3 (142-424); Red Blood Count 3.97 M/mm3 (4.20-5.40); Red Cell Distribution Width-SD 47.2 fL; White Blood Count 8.7 K/mm3 (4.8-10.8)
[2024-12-28 16:04] LABS: Alanine Aminotransferase 18 U/L (12-78); Albumin Level 4.6 g/dl (3.5-5.0); Albumin/Globulin Ratio 1.4 (1.1-1.8); Alkaline Phosphatase 114 U/L (38-126); Anion Gap 16.0 mEq/L (5-15); Aspartate Amino Transferase 22 U/L (14-36); Bilirubin,Total 0.2 mg/dl (0.2-1.3); Blood Urea Nitrogen 32 mg/dl (7-17); Calcium 9.8 mg/dl (8.4-10.2); Carbon Dioxide 27 mmol/L (22.0-30.0); Chloride 102 mmol/L (98-107); Creatinine,Serum 1.30 mg/dl (0.52-1.04); Estimated Glomerular Filt Rate 44 ml/min (>60); GFR (African American) 53 ML/MIN (>60); Globulin 3.2 g/dL (1.3-3.2); Glucose 122 mg/dl (74-100); Potassium 4.0 mmoL/L (3.5-5.1); Sodium 141 mmol/L (136-145); Total Protein,Serum 7.8 g/dl (6.3-8.2)
[2024-12-28 16:11] LABS: C-Reactive Protein 4.2 mg/L (0-4)
== END 2024-12-28 23:59 | disposition home or self-care (01) ==
LOC: LAB 14:27
PROVIDERS: PCP Family Medicine; Visit Provider Nurse Practitioner
DX: M79.89 Other specified soft tissue disorders (principal); E11.621 Type 2 diabetes mellitus with foot ulcer; L97.522 Non-pressure chronic ulcer of other part of left foot with fat layer exposed; L97.521 Non-pressure chronic ulcer of other part of left foot limited to breakdown of skin
CPT/HCPCS: 36415; 73630; 80053; 85025; 85651; 86140

== ENCOUNTER 2025-01-18 08:35 | Day surgery (SDC) | payer OTHER, SELFPAY ==
[2025-01-18 08:50] VITALS: BMI 38.7
[2025-01-18 08:58] VITALS: BP 188/102; PULSE 95; RESP 18; TEMP 36.2; O2SAT 100
[2025-01-18 09:44] LABS: POC Glucose,Bedside 180 gm/dL (70-110)
--- NOTE | 2025-01-18 09:47 | P.OP_ITS ---
Date of procedure: 01/18/25 Pre-op Diagnosis:: Left plantar foot DFU Right hallux pre-ulcerative callus Right 5th toe callus Post-op Diagnosis:: Same Procedure performed:: [facility] Application of skin graft substitute foot/leg ([address]) Surgical prep of skin graft recipient site (24187) Wound debridement (75133) Callus debridement x2 Surgeon:: Arely Tai DPM Anesthesia: none Estimated blood loss (mL): 5 Clinical Note:: Pre-op indications: Patient is a 49-year-old diabetic female who presents with diabetic foot ulcers since May 2024 after prolonged walking in sandals at [place]. Recent left foot x-rays and labs indicate infection resolved and no underlying evidence of osteomyelitis. Patient has failed conservative treatment, including modification of activity, modification of shoe gear, multiple debridements, various wound dressings, off-loading, immobilization in fracture boot. The recent x-rays are negative for underlying bone infection. Any prior skin/soft tissue infection resolved with oral antibiotics. We discussed staged surgery for wound debridement and graft applications (insurance approved up to five graft applications). Staged surgery for left foot wound debridement, graft application #1 on 01/18/25. All risks and benefits were discussed including but not limited to: damage to blood vessels and nerves, bleeding, infection, wound complications, need for further surgery, implant/graft failure, need for removal of implant/graft, allergic reaction, prolonged or permanent swelling of the extremity, prolonged or permanent pain or deformity, CRPS/RSD, DVT/PE, (discussed minimal anesthetic complications since case will be do with local ane sthesia if needed). Patient understands if wound/graft gets infected, it could lead to prolonged oral or IV antibiotics or increased risk of osteomyelitis, which could lead to possible loss of digits, partial foot or even BKA. No guarantees were given. All questions fully answered. Patient understands the postoperatively she will need to minimize activity and be protected weightbearing in the fracture boot to reduce tension and graft shearing at surgery site. The patient verbalized understanding and agreed to proceed with surgery. Verbal and written consent was obtained. *In pre-op patient had elevated blood pressure. She reports this happens frequently at doctors appointments and prior to dental procedures. She denies symptoms such as lightheadedness, dizziness, blurred vision, or headaches. She understands if she has any of the symptoms to call office or report to ER for further evaluation and treatment. Patient/ verbalized understanding and agreement with instructions. Operative findings:: Right foot fifth lateral toe callus. Sharp debridement no underlying ulceration noted. Right hallux plantar pre-ulcerative callus. Sharp excisional debridement through skin with 15 blade. No full-thickness underlying wound noted. Left plantar foot, subfourth metatarsal with diabetic foot ulcer noted. No purulence, drainage, malodor or acute signs of infection noted. Sharp excisional full- thickness debridement with 15 blade, forceps, curette through skin, subcutaneous tissue into/including deep fascia. Biofilm and fibrotic slough was removed. Bleeding noted and controlled with compression. Post debridement: Wound base 100% granular, 1.8 x 1.3 x 1.0 cm. Wound bed looks healthy, biggest concern is the deep defect. Operative note:: On this date and time patient was deemed an appropriate surgical candidate. With informed consent signed, the patient was taken to the local procedure operating theater room. The patient was positioned supine. No anesthesia was induced. No tourniquet used. Left lower extremity was prepped and draped in normal sterile fashion. 1g IM Rocephin given. Right foot callus debridement x2: 15 blade used to sharply debride thickened skin/callus. Post debridement: No underlying ulcer noted. Mild bleeding and fragile skin to the right plantar hallux pre-ulcerative callus area. Ketty collagen, Band-Aid applied. Left plantar foot wound debridement: Ulcer noted to the sub 4th metatarsal. Predebridement there was minimal maceration, some periwound callus but no acute signs of infection noted. Sharp excisional full-thickness debridement with 15 blade, curette, forceps down to/including deep fascia tissue. Biofilm and fibrotic slough removed. No 4th met bone exposed. The skin edges were debrided with 15' blade, some bleeding noted. The wound was flushed with gentamicin irrigation. Skin cleansed with saline. Mastisol applied around the wound edges. Left foot application of Apligraf (Organogenesis wound graft): Graft was prepared in standard fashion. Graft was not cut. The entire graft (44sq cm) was utilized. The graft was placed over the left sub 4th met DFU (and circumferentially around the surrounding skin as the graft was larger than the wound) and secured with Steri-Strips. Adaptic was applied over the graft followed by a modified padded/bloster dry sterile dressing to left foot. The patient tolerated the procedure well, without complications. Materials: Organogenesis Aligraf wound graft x1 (44sq cm; 0cm wasted) Discharge/Plan: Ok to discharge home when ready and vss. Patient is to maintain dressing clean dry and intact. Elevate on two pillows. Minimize weight bearing. Ideally PWB to left heel in fracture boot with crutches/walker. Follow up for staged surgery on 01/25/25: Left foot wound debridement, application of wound graft #2. Condition: stable Disposition: same day Complications:: None
[2025-01-18 10:20] VITALS: BP 169/95; PULSE 99; RESP 16; TEMP 36.1; O2SAT 99
[2025-01-18] MEDS: GENTAMICIN 80 MG/2 ML VIAL (10:27)
== END 2025-01-18 10:53 | disposition home or self-care (01) ==
PROVIDERS: PCP Family Medicine; Visit Provider Podiatrist
PROC: (CPT 11056; principal; 2025-01-18 10:00)
DX: E11.621 Type 2 diabetes mellitus with foot ulcer (principal); L97.422 Non-pressure chronic ulcer of left heel and midfoot with fat layer exposed; L84 Corns and callosities; Z79.84 Long term (current) use of oral hypoglycemic drugs; Z79.4 Long term (current) use of insulin; Z79.890 Hormone replacement therapy; Z79.899 Other long term (current) drug therapy; J84.9 Interstitial pulmonary disease, unspecified; J45.909 Unspecified asthma, uncomplicated
CPT/HCPCS: 11056; 15275; 15276; 82962; J1580; Q4101

== ENCOUNTER 2025-01-25 08:07 | Day surgery (SDC) | payer OTHER, SELFPAY ==
[2025-01-25 09:37] VITALS: BP 181/122; PULSE 86; RESP 18; TEMP 36.1; O2SAT 99
[2025-01-25 09:40] VITALS: BMI 38.7
--- NOTE | 2025-01-25 09:51 | EXP.OP.NOTE ---
Date of procedure: 01/25/25 Pre-op Diagnosis:: Left plantar foot (subv 4th met) DFU Left 4th toe DFU Post-op Diagnosis:: Same Procedure performed[facility] Application of skin graft substitute foot/leg ([id number]) Surgical prep of skin graft recipient site (24763) Wound debridement x2 (79358) Surgeon:: Arely Tai DPM Anesthesia: none Estimated blood loss (mL): 5 Clinical Note:: Pre-op indications: Patient is a 50-year-old diabetic female who presents with diabetic foot ulcers since May 2024 after prolonged walking in sandals at [place]. Recent left foot x-rays and labs indicate infection resolved and no underlying evidence of osteomyelitis. Patient has failed conservative treatment, including modification of activity, modification of shoe gear, multiple debridements, various wound dressings, off-loading, immobilization in fracture boot. The recent x-rays are negative for underlying bone infection. Any prior skin/soft tissue infection resolved with oral antibiotics. We discussed staged surgery for wound debridement and graft applications (insurance approved up to five graft applications). Staged surgery for left foot wound debridement, graft application #1 on 01/18/25, application #2 on . All risks and benefits were discussed including but not limited to: damage to blood vessels and nerves, bleeding, infection, wound complications, need for further surgery, implant/graft failure, need for removal of implant/graft, allergic reaction, prolonged or permanent swelling of the extremity, prolonged or permanent pain or deformity, CRPS/RSD, DVT/PE, (discussed minimal anesthetic complications since case will be do with local anesthesia if needed). Patient understands if wound/graft gets infected, it could lead to prolonged oral or IV antibiotics or increased risk of osteomyelitis, which could lead to possible loss of digits, partial foot or even BKA. No guarantees were given. All questions fully answered. Patient understands the postoperatively she will need to minimize activity and be protected weightbearing in the fracture boot to reduce tension and graft shearing at surgery site. The patient verbalized understanding and agreed to proceed with surgery. Verbal and written consent was obtained. Operative findings:: Left foot fourth lateral toe diabetic ulcer. Sharp excisional full thickness debridement through skin into subcutaneous tissue with 15 blade. Post: 100% granular, 0.3 x 0.2 x 0.1 cm. Left plantar foot, subfourth metatarsal diabetic foot ulcer noted. No purulence, drainage, malodor or acute signs of infection noted. Sharp excisional full-thickness debridement with 15 blade, forceps, curette through skin, subcutaneous tissue into/including deep fascia. Biofilm and fibrotic slough was removed. Bleeding noted and controlled with compression. Post debridement: Wound base 100% granular, 1.4 x 1.0 x 0.7cm. Wound bed looks healthy, biggest concern is the deep defect which has filled in since last week. Operative note:: On this date and time patient was deemed an appropriate surgical candidate. With informed consent signed, the patient was taken to the local procedure operating theater room. The patient was positioned supine. No anesthesia was induced. No tourniquet used. Left lower extremity was prepped and draped in normal sterile fashion. 1g IM Rocephin given. Left 4th toe wound debridement: Sharp excisional full-thickness debridement with 15 blade, curette and forceps down to/including subcutaneous tissue. Biofilm and fibrotic slough removed. Periwound callus debrided. Post debridement healthy the bleeding skin edges. Wound flushed with gentamicin irrigation. Left plantar foot wound debridement: Ulcer noted to the sub 4th metatarsal. Predebridement there was minimal maceration, some periwound graft incorporation and no acute signs of infection noted. Sharp excisional full-thickness debridement with 15 blade, curette, forceps down to/including deep fascia tissue. Biofilm and fibrotic slough removed. No 4th met bone exposed. The skin edges were debrided with 15' blade, some bleeding noted. The wound was flushed with gentamicin irrigation. Skin cleansed with saline. Mastisol applied around the wound edges. Ketty collagen was packed into left sub 4th met DFU defect prior to Apligraf application. Left foot application of Apligraf (Organogenesis wound graft): Graft was prepared in standard fashion. Graft was cut (1/4 of it was applied over the fourth toe DFU, 3/4 to the subfourth met DFU). The entire graft (44sq cm) was utilized. The graft was placed over the left 4th toe and left sub 4th met DFU (and circumferentially around the surrounding plantar skin as the graft was larger than the wound) and secured with Steri-Strips. Adaptic was applied over the graft followed by a modified padded/bloster dry sterile dressing to left foot. The patient tolerated the procedure well, without complications. Materials: Organogenesis Aligraf wound graft x1 (44sq cm; 0cm wasted), Promogran Ketty collagen x1 (4.34sq ) Discharge/Plan: Ok to discharge home when ready and vss. Patient is to maintain dressing clean dry and intact. Elevate on two pillows. Minimize weight bearing. Ideally PWB to left heel in fracture boot with crutches/walker. Follow-up outpatient with [facility] podiatry Thursday01/30/25 for reevaluation. Plan for staged surgery on 02/01/25: Left foot wound debridement, application of wound graft #3. Condition: stable Disposition: same day Complications:: None
[2025-01-25] MEDS: GENTAMICIN 80 MG/2 ML VIAL (10:05)
[2025-01-25 10:20] VITALS: BP 159/90; PULSE 85; RESP 18; TEMP 36.9; O2SAT 99
[2025-01-25] MEDS: cefTRIAXone 1GM VIAL 1 GM IM (10:27)
[2025-01-25 23:07] LABS: POC Glucose,Bedside 119 gm/dL (70-110)
== END 2025-01-25 10:43 | disposition home or self-care (01) ==
PROVIDERS: PCP Family Medicine; Visit Provider Podiatrist
PROC: (CPT 15002; principal; 2025-01-25 10:00)
DX: E11.621 Type 2 diabetes mellitus with foot ulcer (principal); L97.529 Non-pressure chronic ulcer of other part of left foot with unspecified severity; L97.429 Non-pressure chronic ulcer of left heel and midfoot with unspecified severity; I10 Essential (primary) hypertension; E78.5 Hyperlipidemia, unspecified; J45.909 Unspecified asthma, uncomplicated; J84.9 Interstitial pulmonary disease, unspecified; E07.9 Disorder of thyroid, unspecified; Z79.84 Long term (current) use of oral hypoglycemic drugs; Z79.890 Hormone replacement therapy; Z79.899 Other long term (current) drug therapy
CPT/HCPCS: 15002; 15271; 15272; 82962; J0696; J1580; Q4101

== ENCOUNTER → 2025-02-01 08:27 | Day surgery (SDC) | payer OTHER, SELFPAY ==
[2025-01-31 13:20] VITALS: BMI 38.7
[2025-02-01 08:41] VITALS: PULSE 83; RESP 16; TEMP 36.2; O2SAT 100
--- NOTE | 2025-02-01 09:39 | P.OP_ITS ---
Date of procedure: 02/01/25 Pre-op Diagnosis:: Left plantar foot (subv 4th met) DFU Left 4th toe DFU Post-op Diagnosis:: Same Procedure performed:: [facility] Application of skin graft substitute foot/leg ([id number]) Surgical prep of skin graft recipient site (41314) Wound debridement x2 (95913) Surgeon:: Arely Tai DPM Anesthesia: none Estimated blood loss (mL): 5 Clinical Note:: Pre-op indications: Patient is a 49-year-old diabetic female who presents with diabetic foot ulcers since May 2024 after prolonged walking in sandals at [place]. Recent left foot x-rays and labs indicate infection resolved and no underlying evidence of osteomyelitis. Patient has failed conservative treatment, including modification of activity, modification of shoe gear, multiple debridements, various wound dressings, off-loading, immobilization in fracture boot. The recent x-rays are negative for underlying bone infection. Any prior skin/soft tissue infection resolved with oral antibiotics. We discussed staged surgery for wound debridement and graft applications (insurance approved up to five graft applications). Staged surgery has included: left foot wound debridement, application of wound graft; rm #1 on 01/18/25, rm #2 on 01/25/25. Planning for rm #3 on 02/01/25. Common risks and benefits were discussed including but not limited to: damage to blood vessels and nerves, bleeding, infection, wound complications, need for further surgery, implant/graft failure, need for removal of implant/graft, allergic reaction, prolonged or permanent swelling of the extremity, prolonged or permanent pain or deformity, CRPS/RSD, DVT/PE, (discussed minimal anesthetic complications since case will be do with local anesthesia if needed). Patient understands if wound/graft gets infected, it could lead to prolonged oral or IV antibiotics or increased risk of osteomyelitis, which could lead to possible loss of digits, partial foot or even BKA. No guarantees were given. All questions fully answered. Patient understands the postoperatively she will need to minimize activity and be protected weightbearing in the fracture boot to reduce tension and graft shearing at surgery site. The patient verbalized understanding and agreed to proceed with surgery. Verbal and written consent was obtained. Operative findings:: Left foot fourth lateral toe diabetic ulcer. Sharp excisional full thickness debridement through skin into subcutaneous tissue with 15 blade. Post: 100% granular, 0.2 x 0.1 x 0.1 cm. Left plantar foot, subfourth metatarsal diabetic foot ulcer noted. No purulence, drainage, malodor or acute signs of infection noted. Sharp excisional full-thickness debridement with 15 blade, forceps through skin, subcutaneous tissue. Biofilm and fibrotic slough was removed. Mild bleeding noted and controlled with compression. Post debridement: Wound base 100% granular, 0.8 x 0.6 x 0.5cm. Wound bed looks healthy, biggest concern is the deep defect which has filled in since grafting. Operative note:: On this date and time patient was deemed an appropriate surgical candidate. With informed consent signed, the patient was taken to the local procedure operating theater room. The patient was positioned supine. No anesthesia was induced. No tourniquet used. Left lower extremity was prepped and draped in normal sterile fashion. 1g IM Rocephin given. Left 4th toe wound debridement: Sharp excisional full-thickness debridement with 15 blade and forceps down to/including subcutaneous tissue. Biofilm and fibrotic slough removed. Periwound callus debrided. Post debridement healthy the bleeding skin edges. Wound flushed with gentamicin irrigation. Left plantar foot wound debridement: Ulcer noted to the sub 4th metatarsal. Predebridement there was minimal maceration, some periwound graft incorporation and no acute signs of infection noted. Sharp excisional full-thickness debridement with 15 blade, curette, forceps down to/including subcutaneous tissue. Biofilm and fibrotic slough removed. No deep fascia or 4th met bone exposed. The skin edges were debrided with 15' blade, some bleeding noted. The wound was flushed with gentamicin irrigation. Skin cleansed with saline. Mastisol applied around wound edges. Ketty collagen was packed into sub 4th met DFU defect prior to Apligraf application. Left foot application of Apligraf (Organogenesis wound graft): Graft was prepared in standard fashion. Graft was cut (1/4 of it was applied over the fourth toe DFU, 3/4 to the subfourth met DFU). The entire graft (44sq cm) was utilized. The graft was placed over the left 4th toe and left sub 4th met DFU (and circumferentially around the surrounding plantar skin as the graft was larger than the wound) and secured with Steri-Strips. Adaptic was applied over the graft followed by a modified padded/bloster dry sterile dressing to left foot. The patient tolerated the procedure well, without complications. Materials: Organogenesis Aligraf wound graft x1 (44sq cm; 0cm wasted), Promogran Ketty collagen x1 (4.34sq ) Discharge/Plan: Ok to discharge home when ready and vss. Patient is to maintain dressing clean dry and intact. Elevate on two pillows. Minimize weight bearing. PWB to left heel in fracture boot, use walker as needed. Follow-up outpatient with [facility] podiatry Thursday02/06/25 @1130 for reevaluation. Plan for staged surgery on 02/08/25: Left foot wound debridement, application of wound graft #4. Condition: stable Disposition: no change Complications:: None
[2025-02-01] MEDS: GENTAMICIN 80 MG/2 ML VIAL (09:45)
[2025-02-01 10:07] VITALS: BP 158/87; PULSE 85; RESP 16; TEMP 36.6; O2SAT 98
[2025-02-01] MEDS: cefTRIAXone 1GM VIAL 1 GM IM (10:16)
[2025-02-02 00:44] LABS: POC Glucose,Bedside 126 gm/dL (70-110)
== END | disposition home or self-care (01) ==
PROVIDERS: PCP Family Medicine; Visit Provider Podiatrist
PROC: (CPT 15002; principal; 2025-02-01 10:00)
DX: L97.522 Non-pressure chronic ulcer of other part of left foot with fat layer exposed (principal); L57.0 Actinic keratosis; L84 Corns and callosities; E11.621 Type 2 diabetes mellitus with foot ulcer; E78.5 Hyperlipidemia, unspecified; I10 Essential (primary) hypertension; Z79.84 Long term (current) use of oral hypoglycemic drugs; Z79.4 Long term (current) use of insulin
CPT/HCPCS: 15002; 15275; 15276; 82962; J0696; J1580; Q4101

== ENCOUNTER 2025-02-27 16:31 | Outpatient (CLI) | payer OTHER, SELFPAY ==
--- OUTSIDE RECORDS SUMMARY | 2025-02-27 16:33 | XMS_ITS | Clinical Summary ---
Author Organization [facility] Address [address] [place] [address] Care Team Providers Care Blast Furnace Checker Name Role Phone Gurvinder Lang MD Primary Care Provider [phone] Social History Tobacco Use Types Packs/Day Years [...] TEST 01/18/2021 FIT Testing (1 year) 01/18/2021 INFLUENZA VACCINE 11/25/2024 03/01/2020 Pneumococcal Vaccine 0-49 Aged Out No longer eligible based on patient's age to complete this topic Insurance [employer] Care Teams Blast Furnace Checker Relationship Specialty Start Date End Date Gurvinder Lang MD [address] [facility] [address] [place] [address] PCP - General Family Medicine 11/03/22
--- OUTSIDE RECORDS SUMMARY | 2025-02-27 16:33 | XMS_ITS | Clinical Summary ---
Author Organization [facility] Address [address] [place] [address] Care Team Providers Care Statistical Analyst Name Role Phone Unavailable Primary Care Provider Unavailabl e Social History Tobacco Use Types Packs/Day Years Used Date Smoking Tobacco: Never Assessed Comments Unknown Sex and Gender Information Value Date Recorded Sex Assigned at Not on file Legal Sex Female 8:39 PM EDT Gender Identity Not on file Sexual Orientation Not on file Plan of Treatment Not on file Insurance [employer]
[2025-02-27 16:49] LABS: Microscopic, Urine URINE MICROSCOPIC (MICROSCOPIC)
[2025-02-27 17:26] LABS: Hemoglobin 12.5 g/dL (12.2-16.2)
[2025-02-27 18:09] LABS: Albumin Level 4.7 g/dl (3.5-5.0); Anion Gap 15.2 mEq/L (5-15); Blood Urea Nitrogen 35 mg/dl (7-17); Calcium 9.6 mg/dl (8.4-10.2); Carbon Dioxide 26 mmol/L (22.0-30.0); Chloride 99 mmol/L (98-107); Creatinine,Serum 1.60 mg/dl (0.52-1.04); Estimated Glomerular Filt Rate 34 ml/min (>60); GFR (African American) 41 ML/MIN (>60); Glucose 118 mg/dl (74-100); Phosphorous 4.4 mg/dl (2.5-4.5); Potassium 4.2 mmoL/L (3.5-5.1); Sodium 136 mmol/L (136-145)
[2025-02-27 20:10] LABS: Hemoglobin A1C 7.3 % (4.0-6.0)
[2025-02-27 20:32] LABS: Bilirubin,Urine Negative (Negative); Color,Urine YELLOW (Yellow); Glucose,Urine (UA) 3+ (Negative); Ketones,Urine Negative (Negative); Leukocyte Esterase,Urine Negative (Negative); PH,Urine 5.5 (5.0-8.5); Protein,Urine TRACE (Negative); Specific Gravity, Urine 1.015 (1.005-1.030); Urobilinogen,Urine 0.2 EU/dl (0.2)
[2025-02-27 21:13] LABS: Bacteria,Urine Trace /lpf; WBC,Urine Occasional #/hpf (0-3)
== END 2025-02-27 23:59 | disposition home or self-care (01) ==
LOC: LAB 16:31
PROVIDERS: PCP Family Medicine; Visit Provider Internal Medicine Nephrology
DX: D64.9 Anemia, unspecified (principal); E55.9 Vitamin D deficiency, unspecified; N18.31 Chronic kidney disease, stage 3a
CPT/HCPCS: 36415; 80069; 81001; 82043; 82570; 83036; 83970; 85018